=== PATIENT | female | born 2005 | race Caucasian/White ===

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

== ENCOUNTER 2024-04-16 19:21 | Observation (INO) | payer MEDICAID, SELFPAY ==
[2024-04-16 20:15] VITALS: BP 119/80; PULSE 91
[2024-04-16 20:19] VITALS: BMI 31.2
--- NOTE | 2024-04-16 20:19 | OBADM ---
This patient, Brit Lamas, admitted to the OB room Labor/Delivery/Recovery 106 for observation. Patient/family oriented to hospital policies and general routines including ID bracelet, bed and alarms, visiting hours, pain management, procedures, bathroom and other care routines, personal items, smoking policy, room service/diet, and visiting hours. Patient/Family are encouraged to report perceived risks to care and to ask questions if they do not understand what they are told or what they should do.
[2024-04-16 20:25] LABS: OBXCEM ROM Plus Negative (Negative)
--- NOTE | 2024-04-18 16:39 | PM.OBTRLD ---
OB - Triage/Final Diagnosis Visit Information Date of evaluation: 04/16/24 Reason for evaluation: threatened labor Comments/Additional reasons for admission: I have assessed the risk for this patient, Brit Lamas, and determined that she would benefit from observation care. Evaluation Laboratory results: Laboratory Tests 04/16/24 19:52 Membranes Rupture Rom plus negative
== END 2024-04-16 20:30 | disposition home or self-care (01) ==
PROVIDERS: Advanced Practice Midwife; Admitting Provider Obstetrics & Gynecology; Visit Provider Obstetrics & Gynecology
DX: O47.1 False labor at or after 37 completed weeks of gestation (principal); Z3A.38 38 weeks gestation of pregnancy
CPT/HCPCS: 84112; G0378; G0379

== ENCOUNTER 2024-04-20 08:20 | Observation (INO) | payer MEDICAID, SELFPAY ==
[2024-04-20 09:59] VITALS: BMI 31.2
--- NOTE | 2024-04-20 10:00 | OBADM ---
This patient, Brit Lamas, admitted to the OB room Labor/Delivery/Recovery 102 for observation. Patient/family oriented to hospital policies and general routines including ID bracelet, bed and alarms, visiting hours, pain management, procedures, bathroom and other care routines, personal items, smoking policy, room service/diet, and visiting hours. Patient/Family are encouraged to report perceived risks to care and to ask questions if they do not understand what they are told or what they should do.
--- NOTE | 2024-04-20 10:09 | PC.NURSE ---
Camilo Hansen CNM notified of patient's arrival on unit and SVE unchanged in an hour and patient says contractions are farther apart and less intense. Patient has appt tomorrow with provider. Orders to discharge
--- NOTE | 2024-04-21 07:56 | PM.OBTRLD ---
OB - Triage/Final Diagnosis Visit Information Date of evaluation: 04/20/24 Reason for evaluation: threatened labor Comments/Additional reasons for admission: I have assessed the risk for this patient, Brit Lamas, and determined that she would benefit from observation care. Evaluation Vital signs: Vital Signs - 24 hr 04/20/24 09:59 Oxygen Delivery Room Air
== END 2024-04-20 10:10 | disposition home or self-care (01) ==
PROVIDERS: Admitting Provider Obstetrics & Gynecology; Referring Provider Advanced Practice Midwife; Visit Provider Obstetrics & Gynecology
DX: O47.1 False labor at or after 37 completed weeks of gestation (principal); Z3A.39 39 weeks gestation of pregnancy
CPT/HCPCS: G0378; G0379

== ENCOUNTER 2024-04-27 14:35 | Outpatient (RCR) | payer MEDICAID, SELFPAY ==
[2024-04-27 15:10] VITALS: BP 122/72; PULSE 110
== END 2024-07-26 23:59 | disposition home or self-care (01) ==
LOC: ANHOBOP 14:35
PROVIDERS: Visit Provider Advanced Practice Midwife
DX: O36.8130 Decreased fetal movements, third trimester, not applicable or unspecified (principal); Z3A.40 40 weeks gestation of pregnancy
CPT/HCPCS: 59025

== ENCOUNTER 2024-04-30 20:52 | Inpatient (IN) | payer MEDICAID, SELFPAY ==
[2024-04-30 21:07] VITALS: BP 121/76; PULSE 84
[2024-04-30 21:29] VITALS: BP 120/79; PULSE 98
[2024-04-30 21:59] VITALS: BP 120/80; PULSE 91
[2024-04-30 22:30] VITALS: BP 126/81; PULSE 85
[2024-04-30 23:00] VITALS: BP 128/84; PULSE 80
[2024-05-01] VITALS (126 sets, daily range): BP systolic 66–135; BP diastolic 44–96; PULSE 55–125; RESP 16–20; TEMP 36.1–36.6; O2SAT 98–100; BMI 32.2
[2024-05-01 00:39] LABS: Basophils Percent Auto 0.2 % (0.2-1.2); Eosinophils Percent Auto 0.2 % (0-4.4); Hematocrit 39.4 % (37.0-47.0); Hemoglobin 13.2 g/dL (12.0-15.0); Immature Granulocyte Absolute 0.07 K/mm3 (0.00-0.031); Immature Granulocyte Percent A 0.7 % (0-0.5); Lymphocytes Absolute Auto 1.64 K/mm3 (0.9-3.2); Lymphocytes Percent Auto 16.5 % (18.3-44.2); Mean Corpuscular HGB Conc 33.5 g/dl (32-36); Mean Corpuscular Hemoglobin 26.8 pg (26-34); Mean Corpuscular Volume 80.1 fl (80-100); Mean Platelet Volume 8.2 fl (7.4-10.4); Monocytes Absolute Auto 0.4 K/mm3 (0.1-0.6); Monocytes Percent Auto 4.3 % (2.6-8.5); Neutrophils Absolute Auto 7.8 K/mm3 (1.3-6.7); Neutrophils Percent Auto 78.1 % (45.5-73.1); Platelet Count Result 244 k/mm3 (150-375); Red Blood Count 4.92 M/mm3 (4.2-5.4); Red Cell Distribution Width 21.2 % (11.5-14.5); White Blood Count 9.9 K/mm3 (4.5-10.0)
[2024-05-01] MEDS: LACTATED RINGERS 1,000 ML 125 ML IV CONT ×2 (00:45→01:08)
[2024-05-01 01:30] LABS: HIV 1/2 Ab P24 Ag Result Negative (Negative)
--- NOTE | 2024-05-01 01:43 | WPDANESEPP ---
Anes - Eval Pre Procedure Procedure: labor epidural Date/Time: 05/01/24 01:43 Surgeon: samara Preop Diagnosis: pain during labor Pre Op Diagnosis: Abdominal pain Patient Data Age: 18 Gender: F Height: Weight: Last Vital Signs Temp 36.1 C L 05/01/24 01:13 Pulse 83 05/01/24 01:41 BP 115/74 05/01/24 01:41 Pulse Ox 98 05/01/24 01:41 Allergies Allergy/AdvReac Type Severity Reaction Status Date / Time No Known Allergies Allergy Verified 03/27/24 12:08 Home Medications Medication Instructions Recorded Confirmed Type innjloah-pwm-Uf-FA 1 mg 1 tablet PO DAILY 03/08/24 03/27/24 History tablet Laboratory Tests 05/01/24 00:28 WBC 9.9 K/mm3 (4.5-10.0) RBC 4.92 M/mm3 (4.2-5.4) Hgb 13.2 g/dL (12.0-15.0) Hct 39.4 % (37.0-47.0) MCV 80.1 fl (80-100) MCH 26.8 pg (26-34) MCHC 33.5 g/dl (32-36) RDW 21.2 H % (11.5-14.5) Plt Count 244 k/mm3 (150-375) MPV 8.2 fl (7.4-10.4) Immature Gran % (Auto) 0.7 H % (0-0.5) Neut % (Auto) 78.1 H % (45.5-73.1) Lymph % (Auto) 16.5 L % (18.3-44.2) [place] % (Auto) 4.3 % (2.6-8.5) Eos % (Auto) 0.2 % (0-4.4) Baso % (Auto) 0.2 % (0.2-1.2) Lymph # (Auto) 1.64 K/mm3 (0.9-3.2) [place] # (Auto) 0.4 K/mm3 (0.1-0.6) Eos # (Auto) 0.0 K/mm3 (0-0.3) Baso # (Auto) 0.0 K/mm3 (0.0-0.1) Abs Immat Gran (auto) 0.07 H K/mm3 (0.00-0.031) Absolute Neuts (auto) 7.8 H K/mm3 (1.3-6.7) Absolute Nucleated RBC 0.000 K/mm3 (0.0-0.012) Nucleated RBC % 0.0 % (0.0-0.2) RPR Pending HIV 1&2 Ab/P24 Ag 4thGn Negative (Negative) Patient hx anesthesia problems: none Family hx anesthesia problems: none Results Review: All pre-operative results and documents have been reviewed as part of the pre-operative evaluation. [facility] Past Medical History Medical History (Updated 03/01/24 @ 11:58 by Warner Donahue PharmD) Anxiety Family History Family History Grandparent Breast cancer Diabetes mellitus Thyroid disorder Mother Diabetes mellitus Depression with anxiety Sibling Depression with anxiety Social History Social History (Updated 07/29/23 @ 09:10 by Cinthya Pichardo CMA) Smoking status: Never smoker Tobacco type: e-cigarettes/vaping Alcohol intake: never Substance use: never Substance use type: does not use Lack of Transportation: No Lack of Food: Sometimes True Current Housing: I Have Housing Concerned About Future Housing: No Difficulty Paying Gas/Electric Bills: No Difficulty Paying for Meds: No Currently Unemployed: No Difficulty w/ Childcare or Family Care: No Spiritual care concerns: No Exam Day of Procedure 05/01/24 01:43
--- NOTE | 2024-05-01 02:02 | LDADM ---
This patient, Brit Lamas, was admitted to Labor/Delivery/Recovery 105 on 04/30/24 at 20:52. Plans for labor, pain management and were discussed with patient. Patient/family oriented to hospital policies and general routines including ID bracelet, bed and alarms, visiting hours, pain management, procedures, bathroom and other care routines, personal items, smoking policy, room service/diet and guest tray routines, security routines, and visiting hours. Patient/Family are encouraged to report perceived risks to care and to ask questions if they do not understand what they are told or what they should do. See OBIX for further documentation.
[2024-05-01 03:37] LABS: Rapid Plasma Reagin Non-Reactive (NonReactive)
--- NOTE | 2024-05-01 06:19 | PM.OBPRVD ---
OB - Vaginal Delivery Note Procedure Delivery date: 05/01/24 Delivery augmentation: Rupture of Membranes and Pitocin Delivery monitor: External FHT and External Uterine Route of delivery: Episiotomy description: None Laceration Description: Labial (right) Delivery repair: vicryl Specimen: No Quantitative Blood Loss (ml): 125 Anesthesia type: Epidural Disposition: Floor Complications: No immediate complications Baby Date of : 05/01/24 Time of : 06:02 Gestational Age by Date: 40 Infant gender: Female presentation: vertex position: Left Occiput Anterior Placenta delivery description: Spontaneous Cord Vessel Description: 3 Vessels, Clamped/Cut and Delayed Cord Clamping score one minute: 8 score five minutes: 9
[2024-05-01] MEDS: OXYTOCIN 30 UNITS/NS 500 ML 30 UNITS/500 ML BAG 125 UNITS IV CONT (06:29)
[2024-05-01] MEDS: COSYNTROPIN 0.25 MG/ML VIAL 1 MG IV PUSH (08:16)
[2024-05-01] MEDS: WITCH HAZEL 40 PADS 1 PAD TOPICAL (08:48)
[2024-05-01] MEDS: BENZOCAINE 20% AER SPR (*SP) 56 GM CAN 1 SPRAY TOPICAL (08:48)
[2024-05-01] MEDS: ONDANSETRON INJ 4 MG/2 ML VIAL IV PUSH (09:30)
--- NOTE | 2024-05-01 11:00 | PC.NURSE ---
Addendum entered by Lawanda Brown RN 05/01/24 15:48: A Good Latch Every Time and Positions handouts given. Mother is not signed up for [facility] so pamphlet and referral form were given. Mother knows that we can send her information over to [facility] to help get her set up with the [facility] office prior to discharge. Original Note: Introductions were made, then consulted with patient to assess needs related to . Discussed with mother her?plans to feed?her infant and the?experience so far. Resources provided for inpatient and outpatient services with the feeding sheet, mom/baby guide and name/number written on the communication board. Mother just fed baby for 13 minutes independently. Encouraged mom to call out for a latch check. Mother voiced understanding of information and will call if there is a request for assistance. Reported to the Primary RN.
--- NOTE | 2024-05-01 11:06 | OBPPTRN ---
Addendum entered by Lawanda Brown RN 05/01/24 15:45: A Good Latch Every Time and Positions handouts given. Mother is not signed up for [facility] so pamphlet and referral form were given. Mother knows that we can send her information over to [facility] to help get her set up with the [facility] office prior to discharge. Original Note: Patient transferred to post room #[id number] via (wheelchair). Support person present. Oriented to unit, room, information board, rooming in, admission packet and security measures. Patient verbalizes understanding.
[2024-05-01] MEDS: diazePAM INJ (*CRX) 10 MG/2 ML SYRINGE 2.5 MG IM (11:42)
[2024-05-01] MEDS: MULTIVIT/MIN/PREN/FOL AC/IRON TABLET 1 TAB PO (11:43)
[2024-05-01] MEDS: ACETAMINOPHEN/BUTALBITAL/CAFFEINE 325-50-40 MG TABLET (FIORICET) 1 TAB PO ×2 (13:11→19:45)
--- NOTE | 2024-05-01 15:02 | WPDANLDPN2 ---
Anes-Prog Note L&D Date/Time: 05/01/24 15:02 Comfortable throughout: labor and delivery Neuraxial method: epidural Epidural/Spinal procedure site: tender Neuro status: Neuro function grossly intact. Cardiovascular status: normal Respiratory status: normal Airway patency: baseline Mental status: baseline Post-Op hydration status: normal Vital Signs: Last Vital Signs Temp 36.6 C 05/01/24 09:45 Pulse 86 05/01/24 09:45 Resp 16 05/01/24 09:45 BP 120/64 05/01/24 09:45 Pulse Ox 99 05/01/24 09:45 O2 Del Method Room Air 05/01/24 12:00 Pain score (VAS): 3/10 I/O: Intake & Output 04/30/24 05/01/24 05/01/24 23:59 07:59 15:59 Intake Total 1000 500 Output Total 125 Balance 875 500 Post-procedural complaints: other (PDPH) Patient feedback: Patient satisfied with anesthetic care. patient reports 3/10 headache on right frontal area of head. no neck stiffness. slightly worse when standing. talked about conservative treatments for PDPH. valium fioricet ordered. patient instructed to drink at least 2 liters of water per day. instructed to leave epidural catheter in place until at least 10 tonight. will discuss EBP if conservative treatments fail.
[2024-05-01] MEDS: IBUPROFEN 600 MG TABLET PO ×2 (15:19→21:30)
[2024-05-01] MEDS: ACETAMINOPHEN 325 MG TABLET 650 MG PO ×2 (15:20→21:30)
--- NOTE | 2024-05-01 16:00 | PC.NURSE ---
Mother called out because she couldn't get infant to wake to feed. Baby was swaddled and snuggling next to mom with the pacifier in her mouth. Encouraged understanding the benefits of skin to skin, responding to feeding cues, and waking baby by unwrapping and undressing her. Reviewed positioning and alignment, supporting breast, off-centered (asymmetrical latch) and leading with the chin with big, open, wide gape. Infant latched optimally to the [left] breast in [semi reclined side lying] position, due to mother's headache. The infant was [able] to maintain latch without discomfort to mother. Mother voiced understanding of the education shared, to call for assistance if the does not latch or if there is discomfort with . Reported to the Primary RN.
--- NOTE | 2024-05-01 22:03 | PC.NURSE ---
Epidural catheter removed by RN with blue tip intact, bandage applied to site.
[2024-05-02] MEDS: diazePAM INJ (*CRX) 10 MG/2 ML SYRINGE 2.5 MG IM (01:41)
[2024-05-02 04:31] LABS: Hematocrit 31.2 % (37.0-47.0); Hemoglobin 9.9 g/dL (12.0-15.0)
[2024-05-02] MEDS: oxyCODONE/ACETAMINOPHEN (*CRX) 5-325 MG TABLET 1 TABLET PO (05:04)
[2024-05-02 08:15] VITALS: BP 106/58; PULSE 83; RESP 16; TEMP 36.4; O2SAT 99
[2024-05-02] MEDS: TETANUS,DIPHTHERIA,AC PERTUSSIS ADULT (0.5 ML) BOOSTRIX IM (09:40)
[2024-05-02] MEDS: POLYSACCHARIDE IRON COMPLEX 150 MG CAPSULE PO ×2 (09:40→16:22)
[2024-05-02] MEDS: MULTIVIT/MIN/PREN/FOL AC/IRON TABLET 1 TAB PO (09:40)
[2024-05-02] MEDS: DOCUSATE SODIUM 100 MG CAPSULE PO ×2 (09:40→16:23)
--- NOTE | 2024-05-02 09:50 | PC.NURSE ---
Introductions were made, then consulted with patient to assess needs related to . Discussed with mother her?plans to feed?her and the?experience so far. Mother is mostly bottle feeding per her preference. Resources provided for inpatient and outpatient services with the feeding sheet, mom/baby guide and name/number written on the communication board. Mother voiced understanding of information and will call if there is a request for assistance. Reported to the Primary RN.
--- NOTE | 2024-05-02 10:09 | WPDANLDPN2 ---
Anes-Prog Note L&D Date/Time: 05/02/24 10:09 Comfortable throughout: labor and delivery Neuraxial method: epidural Epidural/Spinal procedure site: tender Neuro status: Neuro function grossly intact. Cardiovascular status: normal Respiratory status: normal Airway patency: baseline Mental status: baseline Post-Op hydration status: normal Vital Signs: Last Vital Signs Temp 97.5 F L 05/02/24 08:15 Pulse 83 05/02/24 08:15 Resp 16 05/02/24 08:15 BP 106/58 L 05/02/24 08:15 Pulse Ox 99 05/02/24 08:15 O2 Del Method Room Air 05/01/24 19:39 Pain score (VAS): 0/10 Post-procedural complaints: other (PDPH) Patient feedback: Patient satisfied with anesthetic care.
[2024-05-02] MEDS: ACETAMINOPHEN 325 MG TABLET 650 MG PO ×2 (12:31→18:33)
[2024-05-02] MEDS: IBUPROFEN 600 MG TABLET PO ×2 (12:31→18:33)
--- NOTE | 2024-05-02 12:33 | P.PNOB_ITS ---
OB - PN: Subj Subjective Date/time seen: 05/02/24 12:33 Patient comments: no complaints, pain well controlled, incisional pain, tolerating diet and flatus present OB - PN: Obj Data Labs 05/02/24 03:17 Labs: Laboratory Results - last 24 hr 05/02/24 03:17 Hgb 9.9 L D Hct 31.2 L OB - PN A/P Plan day: 1 Plan: routine care Comments: No problems, routine care Time Spent With Patient Time: Total time spent is greater than 50% in coordination of care (as documented) at patient's floor/unit and/or counseling patient: Exam Const: General: comfortable, no acute distress and alert Resp: Effort & Inspection: normal respiratory effort Auscultation: no crackles, no rales and no rhonchi Cardio: Rate: regular rate Heart sounds: no click, no murmurs and no rubs GI: Inspection: non-distended GI Palp: No Tenderness to palpation present ( GI) Auscultation: normal bowel sounds Other: Incision - CDI Extrem: General: normal to inspection, no pedal edema and no calf tenderness
--- NOTE | 2024-05-02 15:27 | PCCCNOTE ---
Met with pt. and FOB at bedside. This is their first child. Pt. lives at home with her mother. Reports she has supportive family. Has everything she needs at home including a car seat, crib, clothing, bottles etc. She was provided resources if she is interested in establishing with [facility] services at discharge. Spoke with pt. and she does not report any current mental health concerns. Does not see anyone for mental health services at this time. 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 Offered to give information for her to establish with a PMD or mental health provider and she declines at this time. Feels safe to return home. Denies any other case management needs.
[2024-05-02] MEDS: ACETAMINOPHEN/BUTALBITAL/CAFFEINE 325-50-40 MG TABLET (FIORICET) 1 TAB PO (16:22)
[2024-05-02] MEDS: CYCLOBENZAPRINE HCL 5 MG TABLET PO (17:32)
[2024-05-02 18:32] VITALS: BP 115/69; PULSE 87; RESP 12; TEMP 37.2; O2SAT 99
--- NOTE | 2024-05-03 07:03 | PM.OBPNVD ---
OB - PN: Subj Subjective Date/time seen: 05/03/24 07:03 Interval history: pp day 2 bottle feeding flexeril helping with back spasms OB - PN: Obj Data Labs 05/02/24 03:17 OB - PN A/P Plan day: 2 Plan: routine care and discharge home Time Spent With Patient Time: Total time spent is greater than 50% in coordination of care (as documented) at patient's floor/unit and/or counseling patient: Review of Systems Review of Systems: All systems reviewed & are unremarkable except as noted in HPI and below Exam Const: General: cooperative and healthy appearing Resp: Effort & Inspection: normal respiratory effort Cardio: Rate: regular rate Rhythm: regular rhythm Skin: General skin exam: normal color
--- NOTE | 2024-05-03 07:06 | PM.OBDSVD ---
DS: Admitting Diagnosis Discharge Date 05/03/24 Admitting Diagnosis labor DS: Discharge Diagnosis Discharge Diagnosis (1) Vaginal delivery: Code(s): O80 - Encounter for full-term uncomplicated delivery Status: Acute OB - DS: Summary OB Procedures : None OB Procedures Intrapartum: Spontaneous Vag Delivery OB Procedures: : None Peripartum Data Laceration Description: Labial (right) Episiotomy description: None Time Spent with Patient Time attestation: Total time spent providing and/or coordinating discharge services: Discharge Plan Discharge Attending physician on discharge: Rafa Fields Discharging Clinician: Abeba Hansen Patient Disposition: Home, Self-Care Activity: pelvic rest Diet: regular Patient Instructions: Antibiotic Form Stand Alone Forms: General Discharge Information Follow-up/Referrals: Abeba Hansen CNM [Certified Nurse Speech Language Pathology Assistant] - 4 Weeks Discharge Medications: New ibuprofen 600 mg Tablet 600 mg PO Q6H PRN (Reason: Cramping) Qty: 30 0RF cyclobenzaprine 5 mg tablet 5 mg PO TID PRN (Reason: muscle spasm) Qty: 30 0RF Continued qaxfkpgo-cbr-Xk-FA 1 mg Tablet 1 tablet PO DAILY Date of admission: 04/30/24 20:52 Primary Care Provider: UNKNOWN,DOCTOR Admitting Provider: Rafa Fields Attending physician on admission: Rafa Fields Condition: Stable
[2024-05-03 08:00] VITALS: PULSE 89; RESP 16; O2SAT 100
[2024-05-03 08:10] VITALS: BP 115/69; PULSE 89; RESP 16; TEMP 36.3; O2SAT 100
[2024-05-03] MEDS: CYCLOBENZAPRINE HCL 5 MG TABLET PO (08:52)
[2024-05-03] MEDS: POLYSACCHARIDE IRON COMPLEX 150 MG CAPSULE PO (08:52)
[2024-05-03] MEDS: DOCUSATE SODIUM 100 MG CAPSULE PO (08:52)
[2024-05-03] MEDS: MULTIVIT/MIN/PREN/FOL AC/IRON TABLET 1 TAB PO (08:52)
--- NOTE | 2024-05-03 09:45 | PC.NURSE ---
Introductions were made, then consulted with patient to assess needs related to . Discussed with mother her?plans to feed?her and the?experience so far. Per mother she has her own breast pump at home and plans to pump and bottle feed. RN offered to assist with flange size and go over breast pump use, mother declined any help at this time. Resources provided for inpatient and outpatient services with the feeding sheet, mom/baby guide and name written on the communication board. Mother voiced understanding of information and will call if there is a request for assistance. Reported to the Primary RN.
--- NOTE | 2024-05-03 11:12 | PC.NURSE ---
Patient viewed the discharge video Mother & Baby Care, The First Two Weeks . Patient was given the opportunity and encouraged to ask questions. Patient verbalized understanding of information shared and has been given the mother/baby guide for home reference.
[2024-05-04 08:30] VITALS: BP 126/74; PULSE 91; RESP 18; TEMP 36.7; O2SAT 100
== END 2024-05-03 12:50 | disposition home or self-care (01) | DRG 560 ==
LOC: ANHLDR 05-01 06:47 → ANHOB2 05-01 09:47
PROVIDERS: Advanced Practice Midwife; Admitting Provider Obstetrics & Gynecology; Visit Provider Obstetrics & Gynecology
DX: O70.0 First degree perineal laceration during delivery (principal); Z37.0 Single live birth; Z3A.40 40 weeks gestation of pregnancy
CPT/HCPCS: 36415; 85014; 85018; 85025; 86592; 86703; 86850; 86900; 86901; 90715; A9270; G0432; J0834; J2405; J2590; J2795; J3360; J7120

== ENCOUNTER 2024-05-05 09:43 | Outpatient (CLI) | payer MEDICAID, SELFPAY ==
[2024-05-05 10:00] VITALS: BP 117/81
[2024-05-05] MEDS: LACTATED RINGERS 1,000 ML 999 ML IV CONT (10:55)
[2024-05-05 11:10] LABS: Mean Platelet Volume 8.1 fl (7.4-10.4); Platelet Count Result 237 k/mm3 (150-375)
[2024-05-05 12:48] VITALS: BP 120/76; PULSE 81; RESP 16; TEMP 36.4
[2024-05-05 13:00] VITALS: BP 114/76; PULSE 70
--- NOTE | 2024-05-05 13:09 | P.PNAN_ITS ---
Anes - Eval Pre Procedure Procedure: Epidural Blood Patch Date/Time: 05/05/24 13:09 Preop Diagnosis: PDPH Pre Op Diagnosis: Headache Patient Data Age: 18 Gender: F Height: Weight: Last Vital Signs BP 117/81 05/05/24 10:00 Allergies Allergy/AdvReac Type Severity Reaction Status Date / Time No Known Allergies Allergy Verified 03/27/24 12:08 Home Medications Medication Instructions Recorded Confirmed Type ujzzefmo-lls-Ns-FA 1 mg 1 tablet PO DAILY 03/08/24 03/27/24 History tablet cyclobenzaprine 5 mg tablet 5 mg PO TID PRN muscle spasm #30 05/03/24 Rx tabs ibuprofen 600 mg tablet 600 mg PO Q6H PRN Cramping #30 tabs 05/03/24 Rx Laboratory Tests 05/05/24 10:36 Plt Count 237 k/mm3 (150-375) MPV 8.1 fl (7.4-10.4) Patient hx anesthesia problems: none Family hx anesthesia problems: none Results Review: All pre-operative results and documents have been reviewed as part of the pre- operative evaluation. [facility] Past Medical History Medical History Anxiety Family History Family History Grandparent Breast cancer Diabetes mellitus Thyroid disorder Mother Diabetes mellitus Depression with anxiety Sibling Depression with anxiety Social History Social History Smoking status: Former smoker Tobacco type: e-cigarettes/vaping Second hand tobacco smoke exposure: No Smoking end date: 04/09/23 Alcohol intake: never Substance use: never Substance use type: does not use Do You Feel Safe in your Home?: Yes Lack of Transportation: No Lack of Food: Never True Current Housing: I Have Housing Concerned About Future Housing: No Difficulty Paying Gas/Electric Bills: No Difficulty Paying for Meds: No Currently Unemployed: No Education: High School Diploma/GED Difficulty w/ Childcare or Family Care: No Spiritual care concerns: No Exam Day of Procedure 05/05/24 13:09 Patient weight: overweight Heart: regular rate and rhythm Lungs: clear to auscultation Airway: Mallampati scale Neurological: alert and oriented
--- NOTE | 2024-05-05 13:11 | P.PCNANE_ITS ---
Anes - Epidural Blood Patch PN Date/Time: 05/05/24 13:11 Consent: I have discussed with the patient/family/POA, the rationale of a lumbar epidural autologous blood patch for the treatment of post-dural puncture headache (spinal headache), including associated potential risks, benefits, complications and side effects. I have also discussed more conservative treatment options such as intravenous hydration, caffeine and non-prescription analgesics. The patient/family/POA, understand(s) and wish(es) to proceed with epidural autologous blood patch as treatment for the patient's post-dural puncture headache. Time-Out: A pre-procedural Time-Out was completed immediately before starting the procedure and confirmed: Patient Identification, Site, Procedure, Patient Position and the Availability of Requisite Equipment. Clinical Indications: Patient complained of severe headache this morning, also states nausea and vomiting last night. Patient given 500mL bolus prior to procedure. Patient positioned sitting. Time out preformed. Site prepped and draped, sterile technique maintained. Epidural needle placed at L4-5, loss of resistance at 6cm, 20mL of blood drawn via sterile technique by Stephania ARORA and administered through epidural syringe by STADIUM ATTENDANT. Patient states no complaints during or after procedure. Instructed patient to lay supine for 2 hours and hydration, rest, and caffeine encouraged. Instructed patient to call if any symptoms resume after discharge home. Epidural Insertion Note Patient position: sitting Skin prep: chlorhexidine Needle: 18 gauge Tuohy-Schliff Technique: loss of resistance Skin anesthesia: lidocaine 1% Observations: tolerated well
--- NOTE | 2024-05-05 15:53 | PC.NURSE ---
1300--Blood patch done per Guanako Carvajal CRNA, Dr. Recinos at as well, education re: self care after discharge home and what to expect done per anesthesia team.
--- NOTE | 2024-05-05 15:56 | PC.NURSE ---
1515--Pt. states her h/a is gone and she wants to go home at this time. IV DC'd at this time and pt. DC home with instructions.
== END 2024-05-05 15:26 | disposition home or self-care (01) ==
LOC: ANHOBOP 09:53 → ANHOBPP 09:54
PROVIDERS: Anesthesiology; Visit Provider Advanced Practice Midwife
DX: R51.9 Headache, unspecified (principal)
CPT/HCPCS: 36415; 62273; 85049; 99199; J7120

== ENCOUNTER 2025-05-16 00:12 | Observation (INO) | payer OTHER, SELFPAY ==
[2025-05-16] VITALS (11 sets, daily range): BP systolic 93–109; BP diastolic 52–85; PULSE 57–81; RESP 14–20; TEMP 36.2–36.8; O2SAT 95–100; BMI 33.1
--- NOTE | ~2025-05-16 | CT_ITS ---
EXAMINATION: CT abdomen pelvis w con DATE: 05/16/2025 02:23 INDICATION: Right abdominal pain. TECHNIQUE: Computed tomography (CT) of the abdomen and pelvis was performed with 100 mL Omnipaque 350 intravenous contrast. Automated exposure control and iterative reconstruction technique were employed. The dose-length product was 807.87 mGy-cm. COMPARISON: None. FINDINGS: The visualized portions of the lung bases demonstrate calcified pulmonary nodules, consistent with old granulomatous disease. No pleural effusion. The heart size is normal. No pericardial effusion. The liver is normal. There is a gallstone in the gallbladder, which is normal in size. The spleen, pancreas, adrenal glands, and kidneys are normal. There are no dilated loops of bowel. There are changes of appendectomy. There are no pathologically enlarged lymph nodes. There is no free intraperitoneal fluid. There is mild thoracic spondylosis. IMPRESSION: 1. No etiology for the patient's symptoms. Reviewed, dictated and finalized at location E.
--- NOTE | ~2025-05-16 | US_ITS ---
EXAMINATION: US abdomen limited DATE: 05/16/2025 15:52 INDICATION: Gallbladder sludge TECHNIQUE: Multiple grayscale and Doppler ultrasound images of the abdomen were obtained. COMPARISON: MRI dated 05/16/2025 FINDINGS: The pancreatic head and body are normal in appearance. The pancreatic tail is not visualized. Liver has normal echogenicity and contour, with a smooth surface. No liver lesion identified. No intrahepatic biliary duct dilation suspected. Portal venous flow was seen in the hepatopetal, normal direction and has normal Doppler waveform. Visualized proximal to mid inferior vena cava is normal. Visualized portion of the right kidney demonstrates normal contour and axis tube with no hydronephrosis. Multiple echogenic and shadowing gallstones layering dependently in the normal-appearing nondilated gallbladder. Common bile duct measures 3 mm maximal diameter which is normal. Sonographic Armas sign was reported as negative by the bottom stainer. IMPRESSION: 1. Cholelithiasis without evident acute cholecystitis or biliary ductal dilation. Reviewed, dictated and finalized at location A. IMPRESSION: 1. Cholelithiasis without evident acute cholecystitis or biliary ductal dilatio n.
--- NOTE | ~2025-05-16 | MR_ITS ---
EXAMINATION: MR MRCP wo/w con/w 3D wo ind DATE: 05/16/2025 12:45 INDICATION: Right upper quadrant abdominal pain. Elevated transaminases. TECHNIQUE: Magnetic resonance imaging (MRI) of the abdomen was performed without and with 17 mL Multihance intravenous contrast. Sequences included coronal T2- weighted SS-FSE, coronal T2-weighted FS SS-FSE, coronal T2-weighted FS FIESTA, axial T2-weighted FS FIESTA, axial T2-weighted FIESTA, sagittal T2-weighted SS- FSE, axial T1-weighted dual-echo FSPGR, axial T2-weighted SS-FSE, axial T1- weighted LAVA, axial T2-weighted STIR FSE. Thick-slab T2-weighted FRFSE-XL images were obtained for magnetic resonance cholangiopancreatography (MRCP). Rotating maximum intensity projection 3-D reconstructions of the volumetric data were created by the technologist. Postcontrast sequences included a time course of axial T1-weighted LAVA. COMPARISON: CT dated 05/16/2025 FINDINGS: ABDOMEN MRI: Heart size is normal. No pericardial or pleural effusion. Multiple small gallstones the dependent aspect of the normal-appearing gallbladder. Liver, spleen, pancreas, bilateral adrenal glands and kidneys are normal. No bowel obstruction. Uterus, bilateral adnexa and visualized portions of the bladder are unremarkable. No pathologically enlarged abdominal or upper pelvic lymphadenopathy. Bone marrow signal is normal throughout. ABDOMEN MRCP: No intra or extrahepatic biliary ductal dilation. The common hepatic duct measures up to 4 mm and the common bile duct measures up to 2 mm, both which are normal. No evident strictures or intraluminal filling defects to suggest choledocholithiasis. IMPRESSION: 1. Cholelithiasis within the normal gallbladder with no choledocholithiasis and no intra or extrahepatic biliary ductal dilation. Reviewed, dictated and finalized at location A.
--- OUTSIDE RECORDS SUMMARY | 2025-05-16 00:14 | XMS_ITS | Clinical Summary ---
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 This disclosure is being madepursuant to the Care Everywhere program and may not contain all information available regarding this patient. Last updated [address].[facility] Light[employer] Allergies No known active allergies Medications * Be aware that medications may not be up to date on this document. Alwaysverify current medications with the patient. acetaminophen (TYLENOL) 160 MG/5ML suspension Take 15.65 mL by mouth every 4 hours as needed 11/27/2017 Active ibuprofen (ADVIL; MOTRIN) 100 MG/5ML suspension Take 20 mL by mouth every 6 hours as needed 11/27/2017 Active docusate sodium (COLACE) 50 MG/5ML solution Take 5 mL by mouth 2 times daily 30 mL 11/27/2017 Active Active Problems Problem Noted Date Diagnosed Date Abdominal pain, right lower quadrant 11/25/2017 Family History Medical History Relation Name Comments Migraine Maternal Grandmother Migraine Mother Relation Name Status Comments Brother Alive Father Alive Maternal Grandfather Alive Maternal Grandmother Alive Mother Alive Paternal Grandfather Alive Paternal Grandmother Alive Social History Tobacco Use Types Packs/Day Years Used Date Smoking Tobacco: Never Smokeless Tobacco: Never Comments No Sex and Gender Information Value Date Recorded Sex Assigned at Not on file Legal Sex Female 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 [employer] Gender Identity Not on file Sexual Orientation Not on file Last Filed Vital Signs Vital Sign Reading Time Taken Comments Blood Pressure 110/60 04/08/2019 12:30 PM CDT Pulse 80 04/08/2019 12:30 PM CDT Temperature 36.8 C (98.3 F) 04/08/2019 12:30 PM CDT Respiratory Rate 20 04/08/2019 12:30 PM CDT Oxygen Saturation 96% 11/27/2017 3:25 AM CDT Inhaled Oxygen Concentration - - Weight 69.6 kg (153 lb 7 oz) 04/08/2019 10:11 AM CDT Height 159 cm (5' 2.6) 04/08/2019 10:11 AM CDT Body Mass Index 27.53 04/08/2019 10:11 AM CDT Plan of Treatment Health Maintenance Due Date Last Done Comments HIV SCREENING 2019 HPV VACCINE (1 - 3-dose series) 2019 CHLAMYDIA/GONORRHEA SCREENING 2020 MENINGOCOCCAL (Group B) VACCINE SHARED DECISION-MAKING (1 of 2 - Standard) 2020 HEPATITIS C SCREENING 06/13/2022 DTAP/TDAP/TD VACCINES (1 - Tdap) 2023 HEPATITIS B VACCINE (1 of 3 - 19+ 3-dose series) 2023 DEPRESSION SCREENING 08/09/2024 COVID-19 VACCINE (3 - 2024- season) 2025 12/04/2020, 11/12/2020 INFLUENZA VACCINE (#1) 2025 1, 07/10/2009, 06/07/2009, Additional history exists ZOSTER VACCINE (1 of 2) 2054 HIB VACCINE Aged Out No longer eligi ble based on patient's age to complete this topic MENINGOCOCCAL GROUPS A/C/Y/W VACCINE Aged Out No longer eligible based on patient's age to complete this topic PNEUMOCOCCAL VACCINE Aged Out No long er eligible based on patient's age to complete this topic [place] [facility] MEDICAID - OUT OF [place] [address] [place] [address] MEDICAID - OUT OF [facility] Advance Directives * Full Code (Latest Code Status on File) Date Activated Date Inactivated Comments 11/25/2017 3:00 PM 11/27/2017 11:43 AM
[2025-05-16] MEDS: ONDANSETRON INJ 4 MG/2 ML VIAL IV PUSH (01:37)
[2025-05-16] MEDS: SODIUM CHLORIDE 0.9% IV 1,000 ML 999 ML IV CONT (01:37)
[2025-05-16] MEDS: MORPHINE SULFATE (*CRX) 4 MG/ML INJ IV PUSH (01:37)
[2025-05-16 01:38] LABS: BEDSIDEPREGUCG Negative (Negative)
[2025-05-16 01:51] LABS: Hematocrit 41.6 % (37.0-47.0); Hemoglobin 13.7 g/dL (12.0-15.0); Immature Granulocyte Percent A 0.5 % (0-0.5); Lymphocytes Absolute Auto 0.99 K/mm3 (0.9-3.2); Mean Corpuscular HGB Conc 32.9 g/dl (32-36); Mean Corpuscular Hemoglobin 27.3 pg (26-34); Mean Corpuscular Volume 83.0 fl (80-100); Nucleated Red Blood Cells Absolute Auto 0.000 K/mm3 (0.0-0.012); Nucleated Red Blood Cells Perc 0.0 % (0.0-0.2); Platelet Count Result 275 k/mm3 (150-375); Red Blood Count 5.01 M/mm3 (4.2-5.4); White Blood Count 11.8 K/mm3 (4.5-10.0)
[2025-05-16 01:57] LABS: Alanine Aminotransferase 102 U/L (6-35); Albumin Level 4.7 g/dL (3.5-5.1); Alkaline Phosphatase 109 U/L (38-126); Anion Gap 10 mmol/L (4-12); Aspartate Amino Transferase 207 U/L (14-36); Bilirubin,Total 1.7 mg/dL (0.2-1.3); Blood Urea Nitrogen 15 mg/dL (7-17); Calcium 9.3 mg/dL (8.4-10.2); Carbon Dioxide 24 mmol/L (22-30); Chloride 104 mmol/L (98-107); Estimated CRCL calculation 133 ml/min; Estimated Glomerular Filt Rate > 60; Glucose 102 mg/dL (65-110); Lipase 86 U/L (23-300); Potassium 3.7 mmol/L (3.4-5.0); Sodium 138 mmol/L (137-145); Total Protein 8.3 g/dL (6.3-8.2)
--- NOTE | 2025-05-16 02:11 | ED_ITS ---
HPI - General Adult General Chief complaint: Abdominal Pain Stated complaint: RUQ abd pain x 4 hours Time Seen by Provider: 05/16/25 01:12 History of Present Illness HPI narrative: Patient 19-year-old female who presents emergency department chief complaint of right-sided abdominal pain patient reports that around 4 hours ago she started having pain in the right upper quadrant reports that radiates to her back and into the epigastric area patient states that she believes she may be having a problem with her gallbladder Related Data Home Medications ?Medication ?Instructions ?Recorded ?Confirmed ?Last Taken ?Type lgxjxqkc-[id number]-[id number]-FA 1 mg 1 tablet PO DAILY 03/27/24 1 Day Ago History tablet ~03/26/24 Allergies Allergy/AdvReac Type Severity Reaction Status Date / Time No Known Allergies Allergy Verified 05/16/25 00:13 Review of Systems 2 Review of Systems: A 10 system review of systems was completed on the patient and is negative except for what is stated in the HPI. Nursing and ancillary documentation was reviewed. PMFSH Past Medical History Medical History Anxiety Family History Family History Grandparent Breast cancer Diabetes mellitus Thyroid disorder Mother Diabetes mellitus Depression with anxiety Sibling Depression with anxiety Social History Social History Smoking status: Former smoker Tobacco type: e-cigarettes/vaping Second hand tobacco smoke exposure: No Smoking end date: 04/09/23 Alcohol intake: never Substance use: never Substance use type: does not use Do You Feel Safe in your Home?: Yes Lack of Transportation: No Lack of Food: Never True Current Housing: I Have Housing Concerned About Future Housing: No Difficulty Paying Gas/Electric Bills: No Difficulty Paying for Meds: No Currently Unemployed: No Education: High School Diploma/GED Difficulty w/ Childcare or Family Care: No Spiritual care concerns: No Exam 2 Narrative: GENERAL: Well-appearing, well-nourished, and in no acute distress. HEAD: Normocephalic, atraumatic. EYES: PERRLA and EOMI. ENT: Nares clear, no rhinorrhea or epistaxis. Mucous membranes moist. NECK: Supple. CHEST: Clear to auscultation. No respiratory distress. HEART: Regular rate and rhythm. No murmur heard. Normal peripheral pulses. ABDOMEN: Soft, tenderness to palpation the right upper quadrant, nondistended, normal active bowel sounds. EXTREMITIES: Normal range of motion. No edema. SKIN: Warm, dry, no rash. NEURO: No focal deficits. Alert and oriented x3. PSYCH: Normal mood and affect. Course Vital Signs Vital signs: Vital Signs Temperature 36.6 C 05/16/25 00:20 Pulse Rate 67 05/16/25 00:20 Respiratory Rate 19 05/16/25 00:20 Blood Pressure 109/85 05/16/25 00:20 Pulse Oximetry 98 05/16/25 00:20 Oxygen Delivery Room Air 05/16/25 00:20 Temperature 36.6 C 05/16/25 00:20 Pulse Rate 70 05/16/25 01:45 Respiratory Rate 19 05/16/25 01:45 Blood Pressure 109/85 05/16/25 00:20 Pulse Oximetry 99 05/16/25 01:45 Oxygen Delivery Room Air 05/16/25 00:20 Medical Decision Making MDM Narrative Medical decision making narrative: Differential diagnosis includes cholecystitis, choledocholithiasis, biliary obstruction, pancreatitis, UTI Laboratory studies were obtained on the patient showed a bilirubin 1.7 liver enzymes were slightly elevated as well CT scan of the abdomen pelvis showed evidence of gallstones without evidence of acute cholecystitis. Given the elevated transaminases and bilirubin of the case was discussed with the hospitalist the patient be admitted for an MRCP and GI evaluation Vital Signs Vital Signs: Vital Signs Temperature 36.6 C 05/16/25 00:20 Pulse Rate 67 05/16/25 00:20 Respiratory Rate 19 05/16/25 00:20 Blood Pressure 109/85 05/16/25 00:20 Pulse Oximetry 98 05/16/25 00:20 Oxygen Delivery Room Air 05/16/25 00:20 Temperature 36.6 C 05/16/25 00:20 Pulse Rate 70 05/16/25 01:45 Respiratory Rate 19 05/16/25 01:45 Blood Pressure 109/85 05/16/25 00:20 Pulse Oximetry 99 05/16/25 01:45 Oxygen Delivery Room Air 05/16/25 00:20 Lab Data 05/16/25 01:38 05/16/25 01:38 Labs: Lab Results 05/16/25 05/16/25 Range/Units 01:36 01:38 WBC 11.8 H (4.5-10.0) K/mm3 RBC 5.01 (4.2-5.4) M/mm3 Hgb 13.7 D (12.0-15.0) g/dL Hct 41.6 (37.0-47.0) % MCV 83.0 (80-100) fl MCH 27.3 (26-34) pg MCHC 32.9 (32-36) g/dl RDW 13.2 (11.5-14.5) % Plt Count 275 (150-375) k/mm3 MPV 8.2 (7.4-10.4) fl Immature Gran % (Auto) 0.5 (0-0.5) % Neut % (Auto) 86.0 H (45.5-73.1) % Lymph % (Auto) 8.4 L (18.3-44.2) % [place] % (Auto) 4.8 (2.6-8.5) % Eos % (Auto) 0.1 (0-4.4) % Baso % (Auto) 0.2 (0.2-1.2) % Lymph # (Auto) 0.99 (0.9-3.2) K/mm3 [place] # (Auto) 0.6 (0.1-0.6) K/mm3 Eos # (Auto) 0.0 (0-0.3) K/mm3 Baso # (Auto) 0.0 (0.0-0.1) K/mm3 Abs Immat Gran (auto) 0.06 H (0.00-0.031) K/mm3 Absolute Neuts (auto) 10.2 H (1.3-6.7) K/mm3 Absolute Nucleated RBC 0.000 (0.0-0.012) K/mm3 Nucleated RBC % 0.0 (0.0-0.2) % Sodium 138 (137-145) mmol/L Potassium 3.7 (3.4-5.0) mmol/L Chloride 104 (98-107) mmol/L Carbon Dioxide 24 (22-30) mmol/L Anion Gap 10 (4-12) mmol/L BUN 15 (7-17) mg/dL Creatinine 0.58 L (0.7-1.0) mg/dL Estim Creat Clear Calc 133 ml/min Estimated GFR > 60 (59 - ) Glucose 102 (65-110) mg/dL Calcium 9.3 (8.4-10.2) mg/dL Total Bilirubin 1.7 H (0.2-1.3) mg/dL AST 207 H (14-36) U/L ALT 102 H (6-35) U/L Alkaline Phosphatase 109 (38-126) U/L Total Protein 8.3 H (6.3-8.2) g/dL Albumin 4.7 (3.5-5.1) g/dL Lipase 86 (23-300) U/L Urine Color Dark yellow (Yellow) Urine Appearance Cloudy H (Clear) Urine pH 5.5 (5.0-9.0) Ur Specific [place] 1.041 H (1.001-1.035) Urine Protein 1+ H (Negative) mg/dL Urine Glucose (UA) Negative (Negative) mg/dL Urine Ketones 2+ H (Negative) mg/dL Ur Blood (Man) Negative (Negative) Urine Nitrate Negative (Negative) Urine Bilirubin 2+ H (Negative) Urine Urobilinogen 1.0 (<2.0) mg/dL Leukocyte Esterase Rfl Trace H (Negative) ELIZABETH/UL Urine RBC 3-5 H (0-2) /hpf Urine WBC 11-20 H (0-3) /hpf Ur Squamous Epith Cells Moderate (Few) /hpf Urine Bacteria 4+ H /hpf Urine Casts 3-5 POC Urine HCG, Qual Negative (Negative) Discharge Plan Discharge Clinical Impression: Cholelithiasis, Elevated liver enzymes, UTI (urinary tract infection) Patient Disposition: Still a Patient Condition: Stable Instructions: Antibiotic Form Patient Language: Tamazight Prescriptions: No Action ozolnsrm-vyo-Jz-FA 1 mg Tablet 1 tablet PO DAILY ibuprofen 600 mg Tablet 600 mg PO Q6H PRN (Reason: Cramping) Qty: 30 0RF cyclobenzaprine 5 mg tablet 5 mg PO TID PRN (Reason: muscle spasm) Qty: 30 0RF Follow-up/Referrals: PHYSICIAN,CLAMP CARRIER OPERATOR [Primary Care Provider, Internal Medicine] Time of Disposition: 03:00
[2025-05-16 02:12] LABS: Add Urine Microscopic? YES; Appearance Urine Cloudy (Clear); Glucose Urine UA Negative (Negative); Leukocyte Esterase Ur Trace LEU/UL (Negative); Nitrate Urine Negative (Negative); Specific Grav Ur 1.041 (1.001-1.035)
[2025-05-16] MEDS: cefTRIAXone 1 GM in SODIUM CHLORIDE 0.9% IV 50 ML 100 ML IVPB (03:29)
[2025-05-16] MEDS: SODIUM CHLORIDE 0.9% IV 1,000 ML 125 ML IV CONT ×2 (03:30→11:23)
--- NOTE | 2025-05-16 05:58 | P.HP_ITS ---
H&P: HPI History of Present Illness Date/Time: 05/16/25 05:58 Chief Complaint: Right upper quadrant pain Narrative: This is a pleasant 19-year-old female PMH nicotine vaping, class 1 obesity, who presents to [facility] on 05/16/2025 complaining of right upper quadrant pain with nausea vomiting for 1 day. She has had similar pain on a few occasions in the past few months, she last visited [place] and was discharged from the ER. She has not had any abdominal surgeries, her 1 was a vaginal delivery. She denies fever, chest pain, shortness of breath, bloody vomitus, diarrhea. Denies urinary frequency, dysuria, foul- smelling urine. WBC 76095, serum creatinine 0.58, total bilirubin 1.7, AST 207, ALT 102, lipase 86, urinalysis grossly abnormal with bacteria, WBC, leukocyte esterase, however contaminated. Patient received morphine 4 mg IV, ceftriaxone, 1 L normal saline bolus, Zofran 4 mg IV x1. She was resting comfortably thereafter. CT abdomen and pelvis with contrast demonstrates gallstones, official radiology interpretation is pending. Review of Systems Review of Systems: All systems reviewed & are unremarkable except as noted in HPI and below (Subjective) PMFSH Past Medical History Medical History Anxiety Family History Family History Grandparent Breast cancer Diabetes mellitus Thyroid disorder Mother Diabetes mellitus Depression with anxiety Sibling Depression with anxiety Social History Social History Smoking status: Never smoker Tobacco type: e-cigarettes/vaping Second hand tobacco smoke exposure: No Smoking end date: 04/09/23 Alcohol intake: never Substance use: never Substance use type: does not use Do You Feel Safe in your Home?: Yes Lack of Transportation: No Lack of Food: Never True Current Housing: I Have Housing Concerned About Future Housing: No Difficulty Paying Gas/Electric Bills: No Difficulty Paying for Meds: No Currently Unemployed: No Education: High School Diploma/GED Difficulty w/ Childcare or Family Care: No Spiritual care concerns: No Meds Home Medications and Allergies Home Medications ?Medication ?Instructions ?Recorded ?Confirmed ?Type ibuprofen 600 mg tablet 600 mg PO Q6H PRN Cramping # 30 tabs 05/03/24 05/16/25 Rx Allergies Allergy/AdvReac Type Severity Reaction Status Date / Time No Known Allergies Allergy Verified 05/16/25 00:13 Vital Signs Vital Signs - 24 hr 05/16/25 00:20 05/16/25 01:43 05/16/25 01:45 Temperature 97.8 F Pulse Rate 67 74 70 Respiratory Rate 19 14 19 Blood Pressure 109/85 Pulse Oximetry 98 99 99 Oxygen Delivery Room Air 05/16/25 03:01 05/16/25 03:02 05/16/25 03:15 Temperature Pulse Rate 64 69 72 Respiratory Rate 17 19 20 Blood Pressure 102/68 Pulse Oximetry 99 100 100 Oxygen Delivery 05/16/25 04:43 Temperature Pulse Rate 67 Respiratory Rate 15 Blood Pressure 101/69 Pulse Oximetry 99 Oxygen Delivery Exam Const: General: comfortable and no acute distress Other: A&O x3 Eyes: Pupils: Equal, round and reactive pupils present Neck: Neck: supple Resp: Effort & Inspection: normal respiratory effort Auscultation: clear to auscultation bilaterally Cardio: Rate: regular rate Rhythm: regular rhythm Heart sounds: no murmurs GI: GI Palp: Yes Soft to palpation and No Guarding due to palpation present (GI) Auscultation: normal bowel sounds Other: Right upper quadrant pain with positive Armas sign Neuro: Motor exam (neuro): 5/5 motor strength present throughout Extrem: General: no edema H&P: Results Labs Labs: Short CBC 05/16/25 Range/Units 01:38 WBC 11.8 H (4.5-10.0) K/mm3 Hgb 13.7 D (12.0-15.0) g/dL Hct 41.6 (37.0-47.0) % Plt Count 275 (150-375) k/mm3 BMP 05/16/25 01:38 Sodium 138 Potassium 3.7 Chloride 104 Carbon Dioxide 24 BUN 15 Creatinine 0.58 L Glucose 102 Calcium 9.3 Liver Function 05/16/25 Range/Units 01:38 Total Bilirubin 1.7 H (0.2-1.3) mg/dL AST 207 H (14-36) U/L ALT 102 H (6-35) U/L Alkaline Phosphatase 109 (38-126) U/L Albumin 4.7 (3.5-5.1) g/dL Urine 05/16/25 Range/Units 01:36 Urine Color Dark yellow (Yellow) Urine Appearance Cloudy H (Clear) Urine pH 5.5 (5.0-9.0) Ur Specific [place] 1.041 H (1.001-1.035) Urine Protein 1+ H (Negative) mg/dL Urine Glucose (UA) Negative (Negative) mg/dL Assessment and Plan Assessment and plan (1) Cholelithiasis: Code(s): K80.20 - Calculus of gallbladder without cholecystitis without obstruction Status: Acute (2) Elevated liver enzymes: Code(s): R74.8 - Abnormal levels of other serum enzymes Status: Acute Plan This is a pleasant 19-year-old female PMH nicotine vaping, class 1 obesity, who presents to [facility] on 05/16/2025 complaining of right upper quadrant pain with nausea vomiting for 1 day. She has had similar pain on a few occasions in the past few months, she last visited [place] and was discharged from the ER. She has not had any abdominal surgeries, her 1 was a vaginal delivery. She denies fever, chest pain, shortness of breath, bloody vomitus, diarrhea. Denies urinary frequency, dysuria, foul- smelling urine. WBC 84561, serum creatinine 0.58, total bilirubin 1.7, AST 207, ALT 102, lipase 86, urinalysis grossly abnormal with bacteria, WBC, leukocyte esterase, however contaminated. Patient received morphine 4 mg IV, ceftriaxone, 1 L normal saline bolus, Zofran 4 mg IV x1. She was resting comfortably thereafter. CT abdomen and pelvis with contrast demonstrates gallstones, official radiology interpretation is pending. ----- Pending MRCP. NPO. Zofran and morphine p.r.n.. Normal saline at 125 cc/hour. She has no urinary symptoms, follow-up urine culture. Nicotine abuse counseling provided. Patient would like to be full code. SCDs. Normal saline. NPO. Admission to medical floor. Hospitalist MIPS Advance Care Plan I have confirmed that the patient's Advanced Care Plan is present, code status is documented, or surrogate decision maker is listed in patient medical record.: Yes Medication Reconciliation I have utilized all available resources to obtain, update and review the patients current medications (includes all prescriptions, OTC, herbals, cannabis, and nutritional supplements).: Yes
--- NOTE | 2025-05-16 07:36 | PM.IMPN ---
Progress Note: A&P Assessment and Plan (1) Cholelithiasis: Code(s): K80.20 - Calculus of gallbladder without cholecystitis without obstruction Status: Acute (2) Elevated liver enzymes: Code(s): R74.8 - Abnormal levels of other serum enzymes Status: Acute Plan This is a pleasant 19-year-old female PMH nicotine vaping, class 1 obesity, who presents to [facility] on 05/16/2025 complaining of right upper quadrant pain with nausea vomiting for 1 day. She has had similar pain on a few occasions in the past few months, she last visited [place] and was discharged from the ER. She has not had any abdominal surgeries, her 1 was a vaginal delivery. She denies fever, chest pain, shortness of breath, bloody vomitus, diarrhea. Denies urinary frequency, dysuria, foul-smelling urine. WBC 90871, serum creatinine 0.58, total bilirubin 1.7, AST 207, ALT 102, lipase 86, urinalysis grossly abnormal with bacteria, WBC, leukocyte esterase, however contaminated. Patient received morphine 4 mg IV, ceftriaxone, 1 L normal saline bolus, Zofran 4 mg IV x1. She was resting comfortably thereafter. CT abdomen and pelvis with contrast demonstrates gallstones. ----- Pending MRCP for today. -gi is following NPO, IV fluids- Normal saline at 125 cc/hour. Zofran and morphine p.r.n.. She has no urinary symptoms, follow-up urine culture. Nicotine abuse counseling provided. Patient would like to be full code. SCDs. Normal saline. NPO. Admission to medical floor. Time Spent With Patient Time with patient: 25 - 35 minutes Subjective Date/time seen: 05/16/25 07:36 Interval history: ... 19-year-old female PMH nicotine vaping, class 1 obesity, who presents to [facility] on 05/16/2025 complaining of right upper quadrant pain with nausea vomiting for 1 day. She has had similar pain on a few occasions in the past few months, she last visited [place] and was discharged from the ER. She has not had any abdominal surgeries, her 1 was a vaginal delivery. She denies fever, chest pain, shortness of breath, bloody vomitus, diarrhea. Denies urinary frequency, dysuria, foul-smelling urine. WBC 14740, serum creatinine 0.58, total bilirubin 1.7, AST 207, ALT 102, lipase 86, urinalysis grossly abnormal with bacteria, WBC, leukocyte esterase, however contaminated. Patient received morphine 4 mg IV, ceftriaxone, 1 L normal saline bolus, Zofran 4 mg IV x1. She was resting comfortably thereafter. CT abdomen and pelvis with contrast demonstrates gallstones, official radiology interpretation is pending. Pt is seen and examined. NPO, pain, nausea control. she is resting in bed, denies any acute pain. family at the bedside, updated. Review of Systems Review of Systems: All systems reviewed & are unremarkable except as noted in HPI and below (Subjective) Exam Narrative: calm and comfortable Const: General: comfortable and no acute distress Other: A&O x3 Eyes: Pupils: Equal, round and reactive pupils present Neck: Neck: supple Resp: Effort & Inspection: normal respiratory effort Auscultation: clear to auscultation bilaterally Cardio: Rate: regular rate Rhythm: regular rhythm Heart sounds: no murmurs GI: Auscultation: normal bowel sounds Other: Right upper quadrant pain with positive Armas sign Neuro: Cranial nerves: Yes Equal, round and reactive pupils present Motor exam (neuro): 5/5 motor strength present throughout Extrem: General: no edema Objective Data Vital Signs Vital Signs: Vital Signs - 24 hr 05/16/25 00:20 05/16/25 01:43 05/16/25 01:45 Temperature 97.8 F Pulse Rate 67 74 70 Respiratory Rate 19 14 19 Blood Pressure 109/85 Pulse Oximetry 98 99 99 Oxygen Delivery Room Air 05/16/25 03:01 05/16/25 03:02 05/16/25 03:15 Temperature Pulse Rate 64 69 72 Respiratory Rate 17 19 20 Blood Pressure 102/68 Pulse Oximetry 99 100 100 Oxygen Delivery 05/16/25 04:43 05/16/25 06:00 Temperature 98.2 F Pulse Rate 67 57 L Respiratory Rate 15 16 Blood Pressure 101/69 93/52 L Pulse Oximetry 99 99 Oxygen Delivery Intake/Output Intake/Output: Intake & Output 05/13/25 05/14/25 05/15/25 05/16/25 23:59 23:59 23:59 23:59 Intake Total 1050 Balance 1050 Meds/Results Medications: Active Medications Generic Name Dose Route Start Last Admin Trade Name Freq PRN Reason Stop Dose Admin Sodium Chloride 1,000 mls @ 125 mls/hr 05/16/25 02:55 05/16/25 03:30 Normal Saline Iv IV CONT 125 mls/hr .Q8H WATSON Administration Ceftriaxone Sodium 1 gm/ 50 mls @ 100 mls/hr 05/17/25 04:00 Sodium Chloride IVPB Q24H WATSON Morphine Sulfate 2 mg 05/16/25 05:58 Morphine Sulfate (*Crx) 4 Mg/Ml Inj IV PUSH Q2H PRN Pain Rated 7-10 Ondansetron HCl 4 mg 05/16/25 02:55 Ondansetron Inj 4 Mg/2 Ml Vial IV PUSH Q4H PRN Nausea Labs Labs: Laboratory Results - last 24 hr 05/16/25 05/16/25 01:36 01:38 WBC 11.8 H RBC 5.01 Hgb 13.7 D Hct 41.6 MCV 83.0 MCH 27.3 MCHC 32.9 RDW 13.2 Plt Count 275 MPV 8.2 Immature Gran % (Auto) 0.5 Neut % (Auto) 86.0 H Lymph % (Auto) 8.4 L [place] % (Auto) 4.8 Eos % (Auto) 0.1 Baso % (Auto) 0.2 Lymph # (Auto) 0.99 [place] # (Auto) 0.6 Eos # (Auto) 0.0 Baso # (Auto) 0.0 Abs Immat Gran (auto) 0.06 H Absolute Neuts (auto) 10.2 H Absolute Nucleated RBC 0.000 Nucleated RBC % 0.0 Sodium 138 Potassium 3.7 Chloride 104 Carbon Dioxide 24 Anion Gap 10 BUN 15 Creatinine 0.58 L Estim Creat Clear Calc 133 Estimated GFR > 60 Glucose 102 Calcium 9.3 Total Bilirubin 1.7 H AST 207 H ALT 102 H Alkaline Phosphatase 109 Total Protein 8.3 H Albumin 4.7 Lipase 86 Urine Color Dark yellow Urine Appearance Cloudy H Urine pH 5.5 Ur Specific [place] 1.041 H Urine Protein 1+ H Urine Glucose (UA) Negative Urine Ketones 2+ H Ur Blood (Man) Negative Urine Nitrate Negative Urine Bilirubin 2+ H Urine Urobilinogen 1.0 Leukocyte Esterase Rfl Trace H Urine RBC 3-5 H Urine WBC 11-20 H Ur Squamous Epith Cells Moderate Urine Bacteria 4+ H Urine Casts 3-5 POC Urine HCG, Qual Negative
--- NOTE | 2025-05-16 14:40 | WPDGICN ---
Assessment and Plan Assessment and plan (1) Cholelithiasis: Qualifiers: Cholelithiasis location: gallbladder Cholecystitis presence: without cholecystitis Biliary obstruction: without biliary obstruction Qualified Code(s): K80.20 - Calculus of gallbladder without cholecystitis without obstruction Code(s): K80.20 - Calculus of gallbladder without cholecystitis without obstruction Status: Acute (2) Elevated liver enzymes: Code(s): R74.8 - Abnormal levels of other serum enzymes Status: Acute (3) Intermittent upper abdominal pain: Code(s): R10.10 - Upper abdominal pain, unspecified Status: Acute Plan 1. Cyclical Upper Abdominal Pain/Nausea & Vomiting/Elevated LFTs/Gallstones: CT scan on 05/16/2025 showed a gallstone in the gallbladder. MRCP with gallstones but no choledocholithiases. She has recurrent episodes of postprandial upper pain radiating to the back, associated with nausea and vomiting on 3 different occasions all after eating fatty meal. She is asymptomatic in between. Liver enzymes are elevated but more in a hepatocellular pattern, although total bilirubin was elevated at 1.7. She is so symptoms of chronic GERD to suggest etiology. She is currently asymptomatic and having no further abdominal pain. I suspect these episodes are biliary secondary to gallstones. . - No ERCP indicated at this time. - Consider surgical referral for cholecystectomy and consider IOC. - Low fat diet recommended. Thank you very much for allowing me to share in the care of this very nice patient. This report may have been done utilizing a voice recognition system. Attempts have been made to correct errors. However, there may be uncorrected grammatical, spelling, and recognition errors present.No . GI Consult Note Consult date/time: 05/16/25 14:40 Reason for consult: elevated LFT/RUQ pain HPI: This is a pleasant 19 year old female with a past medical surgical history of anxiety and appendectomy. She presented to the ER on 05/16/2025 with complaints of abdominal pain. GI consulted for evaluation for right-sided abdominal pain and elevated LFTs. She has had about two to three episodes of similar pain over the last several months. Was seen at [facility] for similar symptoms 1 month ago with no findings per patient, this was after eating Steak and Shake. The most recent episode started yesterday around 8:30 PM after eating a fried chicken sandwich at 8:00 PM. The pain is located in the entire upper abdomen, radiating to her back. She describes the pain as a 7/10 at its worst and feeling like contractions. The pain episodes typically resolves slowly over several hours. This time it resolved with IV morphine. With these episodes, she experiences both nausea and vomiting of liquid/bile. She reports someone told her she looked yellow about a month ago during a similar episode. She has tried Tylenol and ibuprofen without relief. She had a baby in April 2024 and had no gallbladder issues during her . A family history of cholecystectomy is present in almost all female family members. She denies any current aspirin or NSAID use. She denies any prior history of heartburn, reflux, sour taste, change in bowel habits, constipation, diarrhea, melena, hematochezia, dysphagia, odynophagia, GERD, early satiety, weight loss, fevers, or appetite loss. At this time she is currently asymptomatic with no abdominal pain. She has not needed any pain medication. She is asking, if she can eat. ENDOSCOPY HISTORY: EGD: None COLONOSCOPY: None LABS AND STOOL STUDIES: 05/16/2025: BMP: sodium 138, potassium 3.7, BUN 15, creatinine 0.58, WBC 11.8, HGB 13, HCT 41, MCV 83, PLATELETS 275 total bilirubin 1.7, AST 207, ALT 102, Alkaline Phosphate 109 Albumin 4.7, Lipase 86 IMAGING: MRCP 05/16/2025 Impression: Cholelithiasis within the normal gallbladder with no choledocholithiasis and no intra or extrahepatic biliary ductal dilation. CT abdomen pelvis w con 05/16/2025 Impression: Gallstone in the gallbladder. No other etiology for symptoms. [facility] Past Medical History Medical History Anxiety Family History Family History Grandparent Breast cancer Diabetes mellitus Thyroid disorder Mother Diabetes mellitus Depression with anxiety Sibling Depression with anxiety Social History Social History Smoking status: Never smoker Tobacco type: e-cigarettes/vaping Second hand tobacco smoke exposure: No Smoking end date: 04/09/23 Alcohol intake: never Substance use: never Substance use type: does not use Do You Feel Safe in your Home?: Yes Lack of Transportation: No Lack of Food: Never True Current Housing: I Have Housing Concerned About Future Housing: No Difficulty Paying Gas/Electric Bills: No Difficulty Paying for Meds: No Currently Unemployed: No Education: High School Diploma/GED Difficulty w/ Childcare or Family Care: No Spiritual care concerns: No Meds Home Medications and Allergies Home Medications ?Medication ?Instructions ?Recorded ?Confirmed ?Type ibuprofen 600 mg tablet 600 mg PO Q6H PRN Cramping #30 tabs 05/03/24 05/16/25 Rx Allergies Allergy/AdvReac Type Severity Reaction Status Date / Time No Known Allergies Allergy Verified 05/16/25 00:13 Vital Signs Vital Signs - 24 hr 05/16/25 00:20 05/16/25 01:43 05/16/25 01:45 Temperature 97.8 F Pulse Rate 67 74 70 Respiratory Rate 19 14 19 Blood Pressure 109/85 Pulse Oximetry 98 99 99 Oxygen Delivery Room Air 05/16/25 03:01 05/16/25 03:02 05/16/25 03:15 Temperature Pulse Rate 64 69 72 Respiratory Rate 17 19 20 Blood Pressure 102/68 Pulse Oximetry 99 100 100 Oxygen Delivery 05/16/25 04:43 05/16/25 06:00 Temperature 98.2 F Pulse Rate 67 57 L Respiratory Rate 15 16 Blood Pressure 101/69 93/52 L Pulse Oximetry 99 99 Oxygen Delivery Exam Const: General: comfortable and no acute distress Eyes: General: appearance normal, both eyes and all related structures Resp: Effort & Inspection: normal respiratory effort Auscultation: clear to auscultation bilaterally Cardio: Rate: regular rate Rhythm: regular rhythm GI: GI Palp: Yes Soft to palpation and No Tenderness to palpation present (GI) Auscultation: normal bowel sounds Skin: General skin exam: normal color Neuro: Speech: normal speech Extrem: General: normal to inspection Psych: Mental Status: mental status grossly normal Affect: normal affect Results Labs 05/16/25 01:38 05/16/25 01:38 Labs: Short CBC 05/16/25 Range/Units 01:38 WBC 11.8 H (4.5-10.0) K/mm3 Hgb 13.7 D (12.0-15.0) g/dL Hct 41.6 (37.0-47.0) % Plt Count 275 (150-375) k/mm3 BMP 05/16/25 01:38 Sodium 138 Potassium 3.7 Chloride 104 Carbon Dioxide 24 BUN 15 Creatinine 0.58 L Glucose 102 Calcium 9.3 Liver Function 05/16/25 Range/Units 01:38 Total Bilirubin 1.7 H (0.2-1.3) mg/dL AST 207 H (14-36) U/L ALT 102 H (6-35) U/L Alkaline Phosphatase 109 (38-126) U/L Albumin 4.7 (3.5-5.1) g/dL Urine 05/16/25 Range/Units 01:36 Urine Color Dark yellow (Yellow) Urine Appearance Cloudy H (Clear) Urine pH 5.5 (5.0-9.0) Ur Specific [place] 1.041 H (1.001-1.035) Urine Protein 1+ H (Negative) mg/dL Urine Glucose (UA) Negative (Negative) mg/dL
--- NOTE | 2025-05-16 16:30 | PM.CNGS ---
Assessment and Plan Assessment and plan (1) Cholelithiasis: Qualifiers: Biliary obstruction: without biliary obstruction Cholecystitis presence: without cholecystitis Cholelithiasis location: gallbladder Qualified Code(s): K80.20 - Calculus of gallbladder without cholecystitis without obstruction Code(s): K80.20 - Calculus of gallbladder without cholecystitis without obstruction Status: Acute Assessment and Plan: Patient presented to the ED this morning with epigastric and right upper quadrant pain that started last night. She has also had associated vomiting. This is patient's 3rd occurrence of these symptoms. She was previously seen about a month ago at [facility]. Reportedly, imaging was performed and did not show any acute abnormalities. Upon today's admission, labs were drawn and demonstrated a white blood cell count of 11.8. Total bilirubin elevated 1.7. AST and ALT also elevated. CT of the abdomen and pelvis demonstrated no etiology for the patient's symptoms. MRCP demonstrated cholelithiasis with normal gallbladder with no choledocholithiasis and no intra or extrahepatic biliary ductal dilation. An abdominal ultrasound was then performed and demonstrated cholelithiasis without evidence acute cholecystitis or biliary ductal dilation. Upon my exam today, patient is mildly tender to right upper quadrant. Currently being treated with morphine and Zofran. Given a dose of ceftriaxone in the ER. Patient will undergo laparoscopic cholecystectomy tomorrow. Risks, benefits, and alternatives discussed with the patient and her family at bedside. She is agreeable to proceed with surgery. Okay to have diet tonight. NPO at midnight. Plan Discussed patient's case and plan of care with Dr. Varner. History of Present Illness Consult details Consult date: 05/16/25 Narrative: Patient is a 19-year-old female who we have been asked to see in surgical consultation for cholecystectomy. Patient states that epigastric and right upper quadrant pain started around 8:30 p.m. last night. Patient also had associated nausea and vomiting that started around 11:30 p.m. Due to increasing severity of symptoms, patient presented to [facility]. Upon admission, her lab work revealed elevated bilirubin and liver enzymes. Elevated white blood cell count of 11.8. A CT of the abdomen and pelvis demonstrated no etiology for patient's symptoms. An MRCP was then performed. This demonstrated cholelithiasis within the normal gallbladder with no choledocholithiasis and no intra or extrahepatic biliary ductal dilation. An ultrasound then revealed cholelithiasis without evidence acute cholecystitis or biliary ductal dilation. Patient admits that this is her 3rd time having these same symptoms. The 1st time, she was able to conservatively treat at home. With the second occurrence of these symptoms, she presented to [facility]. Imaging did not reveal any acute findings and she was sent home. Patient's previous abdominal surgeries include laparoscopic appendectomy. Last bowel movement was a few days ago. Patient's family at bedside states that this is normal for her, as she does not eat a very high fiber diet or drink much water. [facility] Past Medical History Medical History Anxiety Family History Family History Grandparent Breast cancer Diabetes mellitus Thyroid disorder Mother Diabetes mellitus Depression with anxiety Sibling Depression with anxiety Social History Social History Smoking status: Never smoker Tobacco type: e-cigarettes/vaping Second hand tobacco smoke exposure: No Smoking end date: 04/09/23 Alcohol intake: never Substance use: never Substance use type: does not use Do You Feel Safe in your Home?: Yes Lack of Transportation: No Lack of Food: Never True Current Housing: I Have Housing Concerned About Future Housing: No Difficulty Paying Gas/Electric Bills: No Difficulty Paying for Meds: No Currently Unemployed: No Education: High School Diploma/GED Difficulty w/ Childcare or Family Care: No Spiritual care concerns: No Meds Home Medications and Allergies Home Medications ?Medication ?Instructions ?Recorded ?Confirmed ?Type ibuprofen 600 mg tablet 600 mg PO Q6H PRN Cramping #30 tabs 05/03/24 05/16/25 Rx Allergies Allergy/AdvReac Type Severity Reaction Status Date / Time No Known Allergies Allergy Verified 05/16/25 00:13 Vital Signs Vital Signs - 24 hr 05/16/25 00:20 05/16/25 01:43 05/16/25 01:45 Temperature 97.8 F Pulse Rate 67 74 70 Respiratory Rate 19 14 19 Blood Pressure 109/85 Pulse Oximetry 98 99 99 Oxygen Delivery Room Air 05/16/25 03:01 05/16/25 03:02 05/16/25 03:15 Temperature Pulse Rate 64 69 72 Respiratory Rate 17 19 20 Blood Pressure 102/68 Pulse Oximetry 99 100 100 Oxygen Delivery 05/16/25 04:43 05/16/25 06:00 05/16/25 14:00 Temperature 98.2 F 97.1 F L Pulse Rate 67 57 L 73 Respiratory Rate 15 16 16 Blood Pressure 101/69 93/52 L 106/66 Pulse Oximetry 99 99 95 Oxygen Delivery Exam Const: General: comfortable and no acute distress Eyes: General: appearance normal, both eyes and all related structures Neck: Neck: supple and no JVD Resp: Effort & Inspection: normal respiratory effort Cardio: Rate: regular rate GI: Inspection: non-distended GI Palp: Yes Soft to palpation and Yes Tenderness to palpation present (GI) (RUQ pain) Auscultation: abnormal bowel sounds (hypoactive) Skin: General skin exam: normal color and no rashes or lesions noted Neuro: Speech: normal speech Extrem: General: normal to inspection Psych: Mental Status: mental status grossly normal Results Labs 05/16/25 01:38 05/16/25 01:38 Labs: Abnormal lab results 05/16/25 05/16/25 Range/Units 01:36 01:38 WBC 11.8 H (4.5-10.0) K/mm3 Neut % (Auto) 86.0 H (45.5-73.1) % Lymph % (Auto) 8.4 L (18.3-44.2) % Abs Immat Gran (auto) 0.06 H (0.00-0.031) K/mm3 Absolute Neuts (auto) 10.2 H (1.3-6.7) K/mm3 Creatinine 0.58 L (0.7-1.0) mg/dL Total Bilirubin 1.7 H (0.2-1.3) mg/dL AST 207 H (14-36) U/L ALT 102 H (6-35) U/L Total Protein 8.3 H (6.3-8.2) g/dL Urine Appearance Cloudy H (Clear) Ur Specific [place] 1.041 H (1.001-1.035) Urine Protein 1+ H (Negative) mg/dL Urine Ketones 2+ H (Negative) mg/dL Urine Bilirubin 2+ H (Negative) Leukocyte Esterase Rfl Trace H (Negative) ELIZABETH/UL Urine RBC 3-5 H (0-2) /hpf Urine WBC 11-20 H (0-3) /hpf Urine Bacteria 4+ H /hpf Diabetes panel 05/16/25 Range/Units 01:38 Sodium 138 (137-145) mmol/L Potassium 3.7 (3.4-5.0) mmol/L Chloride 104 (98-107) mmol/L Carbon Dioxide 24 (22-30) mmol/L BUN 15 (7-17) mg/dL Creatinine 0.58 L (0.7-1.0) mg/dL Glucose 102 (65-110) mg/dL Calcium 9.3 (8.4-10.2) mg/dL AST 207 H (14-36) U/L ALT 102 H (6-35) U/L Alkaline Phosphatase 109 (38-126) U/L Total Protein 8.3 H (6.3-8.2) g/dL Albumin 4.7 (3.5-5.1) g/dL Calcium panel 05/16/25 Range/Units 01:38 Calcium 9.3 (8.4-10.2) mg/dL Albumin 4.7 (3.5-5.1) g/dL Pituitary panel 05/16/25 Range/Units 01:38 Sodium 138 (137-145) mmol/L Potassium 3.7 (3.4-5.0) mmol/L Chloride 104 (98-107) mmol/L Carbon Dioxide 24 (22-30) mmol/L BUN 15 (7-17) mg/dL Creatinine 0.58 L (0.7-1.0) mg/dL Glucose 102 (65-110) mg/dL Calcium 9.3 (8.4-10.2) mg/dL Adrenal panel 05/16/25 Range/Units 01:38 Sodium 138 (137-145) mmol/L Potassium 3.7 (3.4-5.0) mmol/L Chloride 104 (98-107) mmol/L Carbon Dioxide 24 (22-30) mmol/L BUN 15 (7-17) mg/dL Creatinine 0.58 L (0.7-1.0) mg/dL Glucose 102 (65-110) mg/dL Calcium 9.3 (8.4-10.2) mg/dL Total Bilirubin 1.7 H (0.2-1.3) mg/dL AST 207 H (14-36) U/L ALT 102 H (6-35) U/L Alkaline Phosphatase 109 (38-126) U/L Total Protein 8.3 H (6.3-8.2) g/dL Albumin 4.7 (3.5-5.1) g/dL All other labs normal.
[2025-05-16] MEDS: PIPERACILLIN/TAZOBACTAM SOD 3.375 GM in SODIUM CHLORIDE 0.9% IV 50 ML 100 ML IVPB ×2 (17:42→23:00)
[2025-05-16] MEDS: LACTATED RINGERS 1,000 ML 100 ML IV CONT (22:51)
[2025-05-17] VITALS (10 sets, daily range): BP systolic 101–126; BP diastolic 57–73; PULSE 67–93; RESP 14–20; TEMP 36.5–36.8; O2SAT 99–100
[2025-05-17] MEDS: PIPERACILLIN/TAZOBACTAM SOD 3.375 GM in SODIUM CHLORIDE 0.9% IV 50 ML 100 ML IVPB ×2 (05:15→11:10)
[2025-05-17 06:05] LABS: Hematocrit 38.2 % (37.0-47.0); Hemoglobin 12.5 g/dL (12.0-15.0); Mean Corpuscular HGB Conc 32.7 g/dl (32-36); Mean Corpuscular Hemoglobin 27.7 pg (26-34); Mean Corpuscular Volume 84.7 fl (80-100); Platelet Count Result 248 k/mm3 (150-375); Red Blood Count 4.51 M/mm3 (4.2-5.4); White Blood Count 5.2 K/mm3 (4.5-10.0)
[2025-05-17 06:26] LABS: Anion Gap 4 mmol/L (4-12); Blood Urea Nitrogen 6 mg/dL (7-17); Calcium 8.3 mg/dL (8.4-10.2); Carbon Dioxide 25 mmol/L (22-30); Chloride 107 mmol/L (98-107); Estimated CRCL calculation 135 ml/min; Estimated Glomerular Filt Rate > 60; Glucose 96 mg/dL (65-110); Potassium 4.1 mmol/L (3.4-5.0); Sodium 136 mmol/L (137-145)
[2025-05-17] MEDS: LACTATED RINGERS 1,000 ML 100 ML IV CONT (08:54)
--- NOTE | 2025-05-17 10:19 | P.PNIM_ITS ---
Progress Note: A&P Assessment and Plan (1) Cholelithiasis: Qualifiers: Biliary obstruction: without biliary obstruction Cholecystitis presence: without cholecystitis Cholelithiasis location: gallbladder Qualified Code(s): K80.20 - Calculus of gallbladder without cholecystitis without obstruction Code(s): K80.20 - Calculus of gallbladder without cholecystitis without obstruction Status: Acute (2) Elevated liver enzymes: Code(s): R74.8 - Abnormal levels of other serum enzymes Status: Acute Plan This is a pleasant 19-year-old female PMH nicotine vaping, class 1 obesity, who presents to [facility] on 05/16/2025 complaining of right upper quadrant pain with nausea vomiting for 1 day. She has had similar pain on a few occasions in the past few months, she last visited [facility] and was discharged from the ER. She has not had any abdominal surgeries, her 1 was a vaginal delivery. She denies fever, chest pain, shortness of breath, bloody vomitus, diarrhea. Denies urinary frequency, dysuria, foul- smelling urine. WBC 47648, serum creatinine 0.58, total bilirubin 1.7, AST 207, ALT 102, lipase 86, urinalysis grossly abnormal with bacteria, WBC, leukocyte esterase, however contaminated. Patient received morphine 4 mg IV, ceftriaxone, 1 L normal saline bolus, Zofran 4 mg IV x1. She was resting comfortably thereafter. CT abdomen and pelvis with contrast demonstrates gallstones. ----- Pending MRCP for today. -gi is following NPO, IV fluids- Normal saline at 125 cc/hour. Zofran and morphine p.r.n.. She has no urinary symptoms, follow-up urine culture. Nicotine abuse counseling provided. Patient would like to be full code. SCDs. Normal saline. NPO. Admission to medical floor. 05/17- Recommend proceeding with laparoscopic cholecystectomy possible conversion open cholecystectomy during this admission. Time Spent With Patient Time with patient: 25 - 35 minutes Subjective Date/time seen: 05/17/25 10:19 Interval history: ... 19-year-old female PMH nicotine vaping, class 1 obesity, who presents to [facility] on 05/16/2025 complaining of right upper quadrant pain with nausea vomiting for 1 day. She has had similar pain on a few occasions in the past few months, she last visited [facility] and was discharged from the ER. She has not had any abdominal surgeries, her 1 was a vaginal delivery. She denies fever, chest pain, shortness of breath, bloody vomitus, diarrhea. Denies urinary frequency, dysuria, foul-smelling urine. WBC 74093, serum c reatinine 0.58, total bilirubin 1.7, AST 207, ALT 102, lipase 86, urinalysis grossly abnormal with bacteria, WBC, leukocyte esterase, however contaminated. Patient received morphine 4 mg IV, ceftriaxone, 1 L normal saline bolus, Zofran 4 mg IV x1. She was resting comfortably thereafter. CT abdomen and pelvis with contrast demonstrates gallstones, official radiology interpretation is pending. Pt is seen and examined. surgery was consulted: Recommend proceeding with laparoscopic cholecystectomy possible conversion open cholecystectomy during this admission. pain is well controlled Review of Systems Review of Systems: All systems reviewed & are unremarkable except as noted in HPI and below (Subjective) Exam Narrative: calm and comfortable, resting in bed Const: General: comfortable and no acute distress Other: A&O x3 Eyes: Pupils: Equal, round and reactive pupils present Neck: Neck: supple Resp: Effort & Inspection: normal respiratory effort Auscultation: clear to auscultation bilaterally Cardio: Rate: regular rate Rhythm: regular rhythm Heart sounds: no murmurs GI: Auscultation: normal bowel sounds Other: Right upper quadrant pain with positive Armas sign Neuro: Cranial nerves: Yes Equal, round and reactive pupils present Motor exam (neuro): 5/5 motor strength present throughout Extrem: General: no edema Objective Data Vital Signs Vital Signs: Vital Signs - 24 hr 05/16/25 14:00 05/16/25 20:00 05/16/25 21:35 Temperature 97.1 F L 98.0 F Pulse Rate 73 81 81 Respiratory Rate 16 15 15 Blood Pressure 106/66 106/60 Pulse Oximetry 95 97 97 Oxygen Delivery Room Air 05/17/25 06:00 Temperature 97.7 F Pulse Rate 67 Respiratory Rate 16 Blood Pressure 101/64 Pulse Oximetry 99 Oxygen Delivery Intake/Output Intake/Output: Intake & Output 05/14/25 05/15/25 05/16/25 05/17/25 23:59 23:59 23:59 23:59 Intake Total 3375.4 1200 Balance 3375.4 1200 Meds/Results Medications: Active Medications Generic Name Dose Route Start Last Admin Trade Name Freq PRN Reason Stop Dose Admin Sodium Chloride 1,000 mls @ 125 mls/hr 05/16/25 02:55 05/17/25 04:47 Normal Saline Iv IV CONT Not Given .Q8H WATSON Piperacillin Sod/Tazobactam 50 mls @ 100 mls/hr 05/16/25 18:00 05/17/25 05:15 Sod 3.375 gm/ Sodium Chloride IVPB 100 mls/hr Q6HR WATSON Administration Lactated Ringer's 1,000 mls @ 100 mls/hr 05/17/25 00:01 05/17/25 08:54 Lr - Lactated Ringers Iv IV CONT 100 mls/hr .Q10H WATSON Administration Morphine Sulfate 2 mg 05/16/25 05:58 Morphine Sulfate (*Crx) 4 Mg/Ml Inj IV PUSH Q2H PRN Pain Rated 7-10 Ondansetron HCl 4 mg 05/16/25 02:55 Ondansetron Inj 4 Mg/2 Ml Vial IV PUSH Q4H PRN Nausea Radiology Results: ITS Impressions Abdomen/Pelvis CT 05/16/25 08:26 IMPRESSION: 1. No etiology for the patient's symptoms. MRCP 05/16/25 14:11 IMPRESSION: 1. Cholelithiasis within the normal gallbladder with no choledocholithiasis and no intra or extrahepatic biliary ductal dilation. Abdomen Ultrasound 05/16/25 16:34 IMPRESSION: 1. Cholelithiasis without evident acute cholecystitis or biliary ductal dilation. Labs Labs: Laboratory Results - last 24 hr 05/17/25 04:58 WBC 5.2 RBC 4.51 Hgb 12.5 Hct 38.2 MCV 84.7 MCH 27.7 MCHC 32.7 RDW 13.5 Plt Count 248 MPV 8.9 Sodium 136 L Potassium 4.1 Chloride 107 Carbon Dioxide 25 Anion Gap 4 BUN 6 L D Creatinine 0.58 L Estim Creat Clear Calc 135 Estimated GFR > 60 Glucose 96 Calcium 8.3 L
[2025-05-17 10:56] LABS: Alanine Aminotransferase 140 U/L (6-35); Albumin Level 3.5 g/dL (3.5-5.1); Alkaline Phosphatase 96 U/L (38-126); Aspartate Amino Transferase 118 U/L (14-36); Bilirubin,Total 0.3 mg/dL (0.2-1.3); Total Protein 6.4 g/dL (6.3-8.2)
--- NOTE | 2025-05-17 12:39 | PC.NURSE ---
To OR per Wheelchair IV access locked. Report given to Mary
--- NOTE | 2025-05-17 13:05 | P.PNAN_ITS ---
Anes - Initial Pre Proc Eval Procedure: Operation Date: 05/17/25 13:30 Proposed Procedures p Laparoscopic Cholecystectomy - Jonathan Varner MD Date/Time: 05/17/25 13:05 Surgeon: Kimberlyn Cobb MD Pre Op Diagnosis: R upper quadrant abdominal pain, gallstones, eleva Patient Data Age: 19 Gender: F Height: 1.6 m Weight: 84.9 kg Last Vital Signs Temp 36.5 C 05/17/25 06:00 Pulse 67 05/17/25 06:00 Resp 16 05/17/25 06:00 BP 101/64 05/17/25 06:00 Pulse Ox 99 05/17/25 06:00 O2 Del Method Room Air 05/16/25 20:00 Allergies Allergy/AdvReac Type Severity Reaction Status Date / Time No Known Allergies Allergy Verified 05/16/25 00:13 Home Medications ?Medication ?Instructions ?Recorded ?Confirmed ?Type ibuprofen 600 mg tablet 600 mg PO Q6H PRN Cramping # 30 tabs 05/03/24 05/16/25 Rx Laboratory Tests 05/17/25 04:58 WBC 5.2 K/mm3 (4.5-10.0) RBC 4.51 M/mm3 (4.2-5.4) Hgb 12.5 g/dL (12.0-15.0) Hct 38.2 % (37.0-47.0) MCV 84.7 fl (80-100) MCH 27.7 pg (26-34) MCHC 32.7 g/dl (32-36) RDW 13.5 % (11.5-14.5) Plt Count 248 k/mm3 (150-375) MPV 8.9 fl (7.4-10.4) Sodium 136 L mmol/L (137-145) Potassium 4.1 mmol/L (3.4-5.0) Chloride 107 mmol/L (98-107) Carbon Dioxide 25 mmol/L (22-30) Anion Gap 4 mmol/L (4-12) BUN 6 L D mg/dL (7-17) Creatinine 0.58 L mg/dL (0.7-1.0) Estim Creat Clear Calc 135 ml/min Estimated GFR > 60 (59 - ) Glucose 96 mg/dL (65-110) Calcium 8.3 L mg/dL (8.4-10.2) Total Bilirubin 0.3 mg/dL (0.2-1.3) Direct Bilirubin 0.0 mg/dL (0-0.3) AST 118 H U/L (14-36) ALT 140 H U/L (6-35) Alkaline Phosphatase 96 U/L (38-126) Total Protein 6.4 g/dL (6.3-8.2) Albumin 3.5 g/dL (3.5-5.1) Patient hx anesthesia problems: none Family hx anesthesia problems: none Results Review: All pre-operative results and documents have been reviewed as part of the pre- operative evaluation. [facility] Past Medical History Medical History Anxiety Family History Family History Grandparent Breast cancer Diabetes mellitus Thyroid disorder Mother Diabetes mellitus Depression with anxiety Sibling Depression with anxiety Social History Social History Smoking status: Never smoker Tobacco type: e-cigarettes/vaping Second hand tobacco smoke exposure: No Smoking end date: 04/09/23 Alcohol intake: never Substance use: never Substance use type: does not use Do You Feel Safe in your Home?: Yes Lack of Transportation: No Lack of Food: Never True Current Housing: I Have Housing Concerned About Future Housing: No Difficulty Paying Gas/Electric Bills: No Difficulty Paying for Meds: No Currently Unemployed: No Education: High School Diploma/GED Difficulty w/ Childcare or Family Care: No Spiritual care concerns: No Anes - Eval Final PreProcedure Day of Procedure 05/17/25 13:05 Patient weight: obese Heart: regular rate and rhythm Lungs: clear to auscultation Airway: Mallampati scale class II Neurological: alert and oriented Last oral intake: >/= 8 hours ASA classification: II Emergent: no Anesthetic plan: proceed Anesthesia type and monitoring: general ETT and standard monitoring Results Review: All pre-operative results and documents have been reviewed as part of the pre- operative evaluation. Informed Consent: The patient's anesthetic plan and its attendant risks and benefits were discussed with the patient/family/POA. Questions were solicited and answers provided to the satisfaction of the patient/family/POA.
--- NOTE | 2025-05-17 13:11 | WPDHPUPDATE1 ---
History and Physical Update Update Date/Time: 05/17/25 13:11 History and Physical has been reviewed, including an updated exam of the patient. There are NO changes in the patient's condition. Risks, benefits, and alternatives have been discussed and questions answered. Patient agrees to proceed with procedure.
[2025-05-17] MEDS: KETOROLAC 15 MG/ML VIAL (*BKC) IV PUSH (14:26)
[2025-05-17] MEDS: LIDO 1%/EPINEPHRINE 1:100,000 50 ML VIAL 30 ML INFILTRATE (14:32)
--- NOTE | 2025-05-17 14:46 | P.OP_ITS ---
Procedure Note - Detailed Date of Procedure 05/17/25 Pre-op Diagnosis Acute cholecystitis secondary to cholelithiasis Post-op Diagnosis Same Procedure Performed Laparoscopic cholecystectomy Surgeon Jonathan Varner MD Hoist Operator BERNADETTE Burgos Anesthesia General Indications Patient is a 19-year-old female who was admitted to the hospital severe right upper quadrant abdominal pain. She had slightly elevated white blood cell count and mild elevation of her liver enzymes. MRCP was performed showing no evidence of common bile duct dilatation no retained common bile duct stone. Gallstones were noted in the gallbladder. She presents now for a laparoscopic cholecystectomy. Findings The gallbladder was moderately distended with some mild erythema and edema of the gallbladder wall. There were no adhesions of the stomach, duodenum, omen jennifer, or colon to the gallbladder wall. Description of Procedure After informed consent was obtained patient brought to the operating room she was placed supine position and general endotracheal anesthesia was administered. The abdomen was then prepped draped usual sterile fashion. A time-out was then performed correctly identifying the patient as well as procedure to be performed. She was already on scheduled IV antibiotics. I 1st entered the abdomen left upper quadrant utilizing a 5mm Optiview port. Once inside the abdomen insufflated to adequate pneumoperitoneum of 15mmHg of CO2. I then placed additional trocar ports in the periumbilical position as well as the epigastric position and then 2 more in the right subcostal position. Lap aroscopic then switched over to the periumbilical trocar port and looking to the upper portions of the abdomen the gallbladder was visualized and it was moderately distended. The gallbladder wall was mildly thickened and edematous. No erythema was noted. There is no evidence of adhesions of the stomach, duodenum, omentum, or colon to the gallbladder wall. A laparoscopic grasper used to hold gallbladder at the dome and the gallbladder was elevated over the right half liver towards the right shoulder. A 2nd grasper used to hold the gallbladder infundibulum. Then with lateral traction on the infundibular gallbladder and strip down the visceral peritoneum off of the infundibulum of the gallbladder until identified the cystic duct. The cystic duct was then dissected out circumferentially. The cystic artery was then identified as well and it was dissected out circumferentially as well. Posterior wall the gallbladder at the infundibulum dissected free of the liver into the critical v iew was obtained. At this point I then placed 2 clips proximally cystic duct and 2 clips distally high on infundibular gallbladder. Cystic duct was then divided Endo Quyen. In a similar fashion cystic artery was then clipped and divided as well. Gallbladder was then resected off the liver utilized electrocautery. No stones or bile was spilled from the gallbladder during this dissection. The gallbladder was then placed into an Endo-Catch bag and brought out through the epigastric port site. The gallbladder and its contents were sent to pathology for examination. I then irrigated out the right upper quadrant the abdomen gallbladder fossa sterile saline solution. Hemostasis was excellent. No evidence of bile leak was noted. I then proceeded to remove all the trocar ports under direct visualization. All port sites were hemostatic. The abdomen was allowed to decompress. The 10mm epigastric trocar port fascial defect was then closed utilizing 0 Vicryl suture at the fascial level. The skin edges in all the port sites were then approximated utilizing a running subcuticular 4 Monocryl suture. The incisions were then cleaned the skin glue was applied. The patient tolerated the procedure well no complications. All sponges, needles, and instrument counts were correct at the end procedure. EBL was _20__cc. The patient was awakened and taken to recovery in stable and satisfactory condition. Implants None Estimated Blood Loss 20 Drains No Packing No Pathology Yes (Gallbladder and gallstones to pathology) Complications No immediate complications Condition Stable Disposition PACU [facility] Billing Surgery - Charge Forward: Surgery Billing
[2025-05-17] MEDS: LACTATED RINGERS 1,000 ML 30 ML IV CONT ×2 (14:52)
--- NOTE | 2025-05-17 14:56 | S_PTH ---
PATIENT: Brit Lamas LOC: [id number] U#:[id number] AGE/SX: 19/F ROOM: 330 RE05/16/[address]: Chelsi Phillip MD : 2005 BED: 01 DIS: 05/19/2025 SPEC #: [id number] RECD: 05/18/25 07:22 STATUS: LUCY RERita #: [id number] AMEE: 05/17/25 14:[address]: Jonathan Varner DEPT: [facility] Surgical RECD BY: Kelsie Madison ENTERED: 05/18/25 07:22 SP TYPE: Surgical OTHR DR: Kimberlyn Cobb MD RECONCILIATION CLERK PHYSICIAN José Miguel Singh MD Tissues: A - Gallbladder Procedures: Hematoxylin and Eosin Stain Gross and Microscopic Level 3
[2025-05-17] MEDS: fentaNYL CITRATE INJ (*CRX) 100 MCG/2 ML VIAL 25 MCG IV PUSH ×8 (15:16→15:59)
--- NOTE | 2025-05-17 16:08 | PC.NURSE ---
Returned from OR per [ ]. Report received from [ akilah].
[2025-05-17] MEDS: MORPHINE SULFATE (*CRX) 4 MG/ML INJ 2 MG IV PUSH (16:24)
[2025-05-17] MEDS: ONDANSETRON INJ 4 MG/2 ML VIAL IV PUSH (16:41)
[2025-05-17] MEDS: HYDROcodone/acetaminophen (*CRX) 5-325 MG TABLET 1 TAB PO ×2 (17:01→23:02)
[2025-05-17] MEDS: oxyCODONE HCL (*CRX) 5 MG TAB IR PO (18:11)
[2025-05-17] MEDS: ACETAMINOPHEN 500 MG TABLET 1000 MG PO (20:30)
[2025-05-18] MEDS: oxyCODONE HCL (*CRX) 5 MG TAB IR PO (00:59)
[2025-05-18 03:07] VITALS: BP 109/55; PULSE 59; RESP 18; TEMP 37.1; O2SAT 100
[2025-05-18] MEDS: MORPHINE SULFATE (*CRX) 4 MG/ML INJ 2 MG IV PUSH ×2 (03:47→05:49)
[2025-05-18] MEDS: LACTATED RINGERS 1,000 ML 75 ML IV CONT ×2 (04:27→17:00)
[2025-05-18 07:00] VITALS: BP 108/70; PULSE 65; RESP 20; TEMP 37; O2SAT 98
[2025-05-18 08:04] LABS: Hematocrit 40.8 % (37.0-47.0); Hemoglobin 13.7 g/dL (12.0-15.0); Mean Corpuscular HGB Conc 33.6 g/dl (32-36); Mean Corpuscular Hemoglobin 27.7 pg (26-34); Mean Corpuscular Volume 82.6 fl (80-100); Platelet Count Result 281 k/mm3 (150-375); Red Blood Count 4.94 M/mm3 (4.2-5.4); White Blood Count 9.9 K/mm3 (4.5-10.0)
[2025-05-18 08:25] LABS: Anion Gap 8 mmol/L (4-12); Blood Urea Nitrogen 4 mg/dL (7-17); Calcium 9.3 mg/dL (8.4-10.2); Carbon Dioxide 24 mmol/L (22-30); Chloride 102 mmol/L (98-107); Estimated CRCL calculation 137 ml/min; Estimated Glomerular Filt Rate > 60; Glucose 92 mg/dL (65-110); Potassium 4.1 mmol/L (3.4-5.0); Sodium 134 mmol/L (137-145)
--- NOTE | 2025-05-18 09:10 | PM.DS ---
DS: Summary Time Spent with Patient Time attestation: Total time spent providing and/or coordinating discharge services: DS: Data Data Completed and Pending Pending studies at discharge: Pending at discharge 05/17/25 14:56 Surgical [PTH] Routine Labs on day of discharge: Labs from last 24 hours 05/18/25 05/17/25 07:45 04:58 WBC 9.9 RBC 4.94 Hgb 13.7 Hct 40.8 MCV 82.6 MCH 27.7 MCHC 33.6 RDW 13.1 Plt Count 281 MPV 8.5 Sodium 134 L 136 L Potassium 4.1 4.1 Chloride 102 107 Carbon Dioxide 24 25 Anion Gap 8 4 BUN 4 L 6 L D Creatinine 0.57 L 0.58 L Estim Creat Clear Calc 137 135 Estimated GFR > 60 > 60 Glucose 92 96 Calcium 9.3 8.3 L Total Bilirubin 0.3 Direct Bilirubin 0.0 AST 118 H ALT 140 H Alkaline Phosphatase 96 Total Protein 6.4 Albumin 3.5 Discharge Plan Discharge Consulting providers: José Miguel Singh; Jonathan Varner Patient Language: Hungarian Discharge Medications: No Action ibuprofen 600 mg Tablet 600 mg PO Q6H PRN (Reason: Cramping) Qty: 30 0RF Date of admission: 05/16/25 02:55 Primary Care Provider: PHYSICIAN,ACADEMIC AFFAIRS DIRECTOR Admitting Provider: Kimberlyn Cobb Attending physician on admission: Kimberlyn Cobb Condition: Stable
[2025-05-18] MEDS: HYDROcodone/acetaminophen (*CRX) 5-325 MG TABLET 1 TAB PO ×3 (10:14→18:58)
[2025-05-18 11:25] VITALS: O2SAT 97
[2025-05-18 14:29] VITALS: BP 102/66; PULSE 76; RESP 18; TEMP 36.1; O2SAT 97
--- NOTE | 2025-05-18 14:29 | WPDANESPN ---
Anes - Prog Note Post-Op Date/Time: 05/18/25 14:29 Cardiovascular status: normal Respiratory status: normal Airway patency: baseline Mental status: baseline Vital Signs: Last Vital Signs Temp 37.0 C 05/18/25 07:00 Pulse 65 05/18/25 07:00 Resp 20 05/18/25 07:00 BP 108/70 05/18/25 07:00 Pulse Ox 97 05/18/25 11:25 O2 Del Method Room Air 05/18/25 11:25 O2 Flow Rate 8 05/17/25 15:05 Pain Score (VAS): 2 I/O: Intake & Output 05/17/25 05/18/25 05/18/25 23:59 07:59 15:59 Intake Total 1500 200 Balance 1500 200 Laboratory Tests 05/18/25 07:45 05/18/25 07:45 05/18/25 07:45 WBC 9.9 RBC 4.94 Hgb 13.7 Hct 40.8 MCV 82.6 MCH 27.7 MCHC 33.6 RDW 13.1 Plt Count 281 MPV 8.5 Sodium 134 L Potassium 4.1 Chloride 102 Carbon Dioxide 24 Anion Gap 8 BUN 4 L Creatinine 0.57 L Estim Creat Clear Calc 137 Estimated GFR > 60 Glucose 92 Calcium 9.3 Patient Feedback: Patient satisfied with anesthetic care.
--- NOTE | 2025-05-18 14:39 | P.PNGS_ITS ---
Progress Note: A&P Assessment and Plan (1) Cholelithiasis: Qualifiers: Biliary obstruction: without biliary obstruction Cholecystitis presence: without cholecystitis Cholelithiasis location: gallbladder Qualified Code(s): K80.20 - Calculus of gallbladder without cholecystitis without obstruction Code(s): K80.20 - Calculus of gallbladder without cholecystitis without obstruction Status: Acute Assessment and Plan: Pod 1 status post laparoscopic cholecystectomy. Patient tolerated the procedure well. She does still complain of some epigastric pain that radiates to her back. Getting [place] and morphine for pain. She states that this sometimes helps but only for a small period of time. Pain is directly over where 1 of her incisions is. Pain is exacerbated by movement. Voiding appropriately and ambulating without assistance. She was able to eat a few bites of a hamburger for lunch. * Only BMP was ordered this morning. Hepatic panel ordered. * Once patient is able to eat a bit more and tolerate pain with oral medication only, then she is stable for discharge. She will follow up with Dr. Varner in the office in 2 weeks. Plan Discussed patient's case and plan of care with Dr. Varner. Subjective Subjective Date/Time Seen: 05/18/25 14:39 Patient reports: no new complaints, tolerating a regular diet and afebrile Interval history: Patient complains of upper abdominal pain, mostly around incision. She states that this pain is exacerbated by movement. She does say that it feels deep and sometimes goes to her back. Afebrile. Voiding appropriately in ambulating without assistance. Was able to eat a few bites of a hamburger for lunch. No BM yet. Exam Const: General: comfortable and no acute distress GI: Inspection: non-distended GI Palp: Yes Soft to palpation and Yes Tenderness to palpation present (GI) (Mostly to epigastric region.) Objective Data Vital Signs Vital Signs: Vital Signs - 24 hr 05/17/25 14:52 05/17/25 15:05 05/17/25 15:20 Temperature 98.0 F Pulse Rate 92 93 80 Respiratory Rate 14 20 16 Blood Pressure 114/63 126/73 115/65 Pulse Oximetry 100 100 100 Oxygen Delivery Simple Face Mask Simple Face Mask Room Air Oxygen Flow Rate 8 8 05/17/25 15:35 05/17/25 15:50 05/17/25 16:02 Temperature Pulse Rate 88 74 70 Respiratory Rate 16 20 20 Blood Pressure 111/70 104/60 107/64 Pulse Oximetry 100 100 100 Oxygen Delivery Room Air Room Air Room Air Oxygen Flow Rate 05/17/25 19:12 05/17/25 20:00 05/17/25 21:49 Temperature 98 F 98.1 F Pulse Rate 78 68 Respiratory Rate 18 18 Blood Pressure 126/57 L 120/69 Pulse Oximetry 100 100 Oxygen Delivery Room Air Oxygen Flow Rate 05/17/25 23:07 05/18/25 03:07 05/18/25 07:00 Temperature 98.2 F 98.7 F 98.6 F Pulse Rate 72 59 L 65 Respiratory Rate 18 18 20 Blood Pressure 121/72 109/55 L 108/70 Pulse Oximetry 100 100 98 Oxygen Delivery Oxygen Flow Rate 05/18/25 08:00 05/18/25 11:25 05/18/25 14:29 Temperature 97 F L Pulse Rate 76 Respiratory Rate 18 Blood Pressure 102/66 Pulse Oximetry 97 97 Oxygen Delivery Room Air Room Air Oxygen Flow Rate Intake/Output Intake/Output: Intake & Output 05/15/25 05/16/25 05/17/25 05/18/25 23:59 23:59 23:59 23:59 Intake Total 3375.4 2800 440 Balance 3375.4 2800 440 Meds/Results Medications: Active Medications Generic Name Dose Route Start Last Admin Trade Name Freq PRN Reason Stop Dose Admin Acetaminophen 1,000 mg 05/17/25 16:05 05/17/25 20:30 Acetaminophen 500 Mg Tablet PO 1,000 mg Q6H PRN Administration Mild Pain (1-3) or Fever Hydrocodone Bitart/Acetaminophen 1 tab 05/17/25 16:05 05/18/25 10:14 Hydrocodone/Acetaminophen (*Crx) 5-325 Mg Tablet PO 1 tab Q4H PRN Administration Pain Rated 4-6 Lactated Ringer's 1,000 mls @ 75 mls/hr 05/17/25 00:01 05/18/25 04:27 Lr - Lactated Ringers Iv IV CONT 75 mls/hr .[id number] WATSON Administration Morphine Sulfate 2 mg 05/16/25 05:58 05/18/25 05:49 Morphine Sulfate (*Crx) 4 Mg/Ml Inj IV PUSH 2 mg Q2H PRN Administration Pain Rated 7-10 Ondansetron HCl 4 mg 10/08/25 02:55 05/17/25 16:41 Ondansetron Inj 4 Mg/2 Ml Vial IV PUSH 4 mg Q4H PRN Administration Nausea Oxycodone HCl 5 mg 05/17/25 16:05 05/18/25 00:59 Oxycodone Hcl (*Crx) 5 Mg Tab Ir PO 5 mg Q6H PRN Administration Pain Rated 7-10 Radiology Results: ITS Impressions Abdomen/Pelvis CT 05/16/25 08:26 IMPRESSION: 1. No etiology for the patient's symptoms. MRCP 05/16/25 14:11 IMPRESSION: 1. Cholelithiasis within the normal gallbladder with no choledocholithiasis and no intra or extrahepatic biliary ductal dilation. Abdomen Ultrasound 05/16/25 16:34 IMPRESSION: 1. Cholelithiasis without evident acute cholecystitis or biliary ductal dilation. Labs Labs: Laboratory Results - last 24 hr 05/18/25 07:45 WBC 9.9 RBC 4.94 Hgb 13.7 Hct 40.8 MCV 82.6 MCH 27.7 MCHC 33.6 RDW 13.1 Plt Count 281 MPV 8.5 Sodium 134 L Potassium 4.1 Chloride 102 Carbon Dioxide 24 Anion Gap 8 BUN 4 L Creatinine 0.57 L Estim Creat Clear Calc 137 Estimated GFR > 60 Glucose 92 Calcium 9.3
--- NOTE | 2025-05-18 15:15 | P.PNIM_ITS ---
Progress Note: A&P Assessment and Plan (1) Cholelithiasis: Qualifiers: Biliary obstruction: without biliary obstruction Cholecystitis presence: without cholecystitis Cholelithiasis location: gallbladder Qualified Code(s): K80.20 - Calculus of gallbladder without cholecystitis without obstruction Code(s): K80.20 - Calculus of gallbladder without cholecystitis without obstruction Status: Acute (2) Elevated liver enzymes: Code(s): R74.8 - Abnormal levels of other serum enzymes Status: Acute Plan This is a pleasant 19-year-old female PMH nicotine vaping, class 1 obesity, who presents to [facility] on 05/16/2025 complaining of right upper quadrant pain with nausea vomiting for 1 day. She has had similar pain on a few occasions in the past few months, she last visited [place] and was discharged from the ER. She has not had any abdominal surgeries, her 1 was a vaginal delivery. She denies fever, chest pain, shortness of breath, bloody vomitus, diarrhea. Denies urinary frequency, dysuria, foul- smelling urine. WBC 22321, serum creatinine 0.58, total bilirubin 1.7, AST 207, ALT 102, lipase 86, urinalysis grossly abnormal with bacteria, WBC, leukocyte esterase, however contaminated. Patient received morphine 4 mg IV, ceftriaxone, 1 L normal saline bolus, Zofran 4 mg IV x1. She was resting comfortably thereafter. CT abdomen and pelvis with contrast demonstrates gallstones. ----- Pending MRCP for today. -gi is following NPO, IV fluids- Normal saline at 125 cc/hour. Zofran and morphine p.r.n.. She has no urinary symptoms, follow-up urine culture. Nicotine abuse counseling provided. Patient would like to be full code. SCDs. Normal saline. NPO. Admission to medical floor. 05/17- Recommend proceeding with laparoscopic cholecystectomy possible conversion open cholecystectomy during this admission. 05/18 continue popain meds, nausea meds as needed surgery following- post op day one trend labs tolerates diet Time Spent With Patient Time with patient: 25 - 35 minutes Subjective Date/time seen: 05/18/25 15:15 Interval history: ... 19-year-old female PMH nicotine vaping, class 1 obesity, who presents to [facility] on 05/16/2025 complaining of right upper quadrant pain with nausea vomiting for 1 day. She has had similar pain on a few occasions in the past few months, she last visited [place] and was discharged from the ER. She has not had any abdominal surgeries, her 1 was a vaginal delivery. She denies fever, chest pain, shortness of breath, bloody vomitus, diarrhea. Denies urinary frequency, dysuria, foul-smelling urine. WBC 81338, serum creatinine 0.58, total bilirubin 1.7, AST 207, ALT 102, lipase 86, urinalysis grossly abnormal with bacteria, WBC, leukocyte esterase, however contaminated. Patient received morphine 4 mg IV, ceftriaxone, 1 L normal saline bolus, Zofran 4 mg IV x1. She was resting comfortably thereafter. CT abdomen and pelvis with contrast demonstrates gallstones, official radiology interpretation is pending. Pt is seen and examined. surgery was consulted: Recommend proceeding with laparoscopic cholecystectomy possible conversion open cholecystectomy during this admission. pain is well controlled 05/18 abd pain in am, some nausea. Review of Systems Review of Systems: All systems reviewed & are unremarkable except as noted in HPI and below (Subjective) Exam Narrative: resting in bed Const: General: comfortable and no acute distress Other: A&O x3 Eyes: Pupils: Equal, round and reactive pupils present Neck: Neck: supple Resp: Effort & Inspection: normal respiratory effort Auscultation: clear to auscultation bilaterally Cardio: Rate: regular rate Rhythm: regular rhythm Heart sounds: no murmurs GI: Auscultation: normal bowel sounds Other: Right upper quadrant pain with positive Armas sign Neuro: Cranial nerves: Yes Equal, round and reactive pupils present Motor exam (neuro): 5/5 motor strength present throughout Extrem: General: no edema Objective Data Vital Signs Vital Signs: Vital Signs - 24 hr 05/17/25 15:20 05/17/25 15:35 05/17/25 15:50 Temperature Pulse Rate 80 88 74 Respiratory Rate 16 16 20 Blood Pressure 115/65 111/70 104/60 Pulse Oximetry 100 100 100 Oxygen Delivery Room Air Room Air Room Air 05/17/25 16:02 05/17/25 19:12 05/17/25 20:00 Temperature 98 F Pulse Rate 70 78 Respiratory Rate 20 18 Blood Pressure 107/64 126/57 L Pulse Oximetry 100 100 Oxygen Delivery Room Air Room Air 05/17/25 21:49 05/17/25 23:07 05/18/25 03:07 Temperature 98.1 F 98.2 F 98.7 F Pulse Rate 68 72 59 L Respiratory Rate 18 18 18 Blood Pressure 120/69 121/72 109/55 L Pulse Oximetry 100 100 100 Oxygen Delivery 05/18/25 07:00 05/18/25 08:00 05/18/25 11:25 Temperature 98.6 F Pulse Rate 65 Respiratory Rate 20 Blood Pressure 108/70 Pulse Oximetry 98 97 Oxygen Delivery Room Air Room Air 05/18/25 14:29 Temperature 97 F L Pulse Rate 76 Respiratory Rate 18 Blood Pressure 102/66 Pulse Oximetry 97 Oxygen Delivery Intake/Output Intake/Output: Intake & Output 05/15/25 05/16/25 05/17/25 05/18/25 23:59 23:59 23:59 23:59 Intake Total 3375.4 2800 440 Balance 3375.4 2800 440 Meds/Results Medications: Active Medications Generic Name Dose Route Start Last Admin Trade Name Freq PRN Reason Stop Dose Admin Acetaminophen 1,000 mg 05/17/25 16:05 05/17/25 20:30 Acetaminophen 500 Mg Tablet PO 1,000 mg Q6H PRN Administration Mild Pain (1-3) or Fever Hydrocodone Bitart/Acetaminophen 1 tab 05/17/25 16:05 05/18/25 14:40 Hydrocodone/Acetaminophen (*Crx) 5-325 Mg Tablet PO 1 tab Q4H PRN Administration Pain Rated 4-6 Lactated Ringer's 1,000 mls @ 75 mls/hr 05/17/25 00:01 05/18/25 04:27 Lr - Lactated Ringers Iv IV CONT 75 mls/hr .[id number] WATSON Administration Morphine Sulfate 2 mg 05/16/25 05:58 05/18/25 05:49 Morphine Sulfate (*Crx) 4 Mg/Ml Inj IV PUSH 2 mg Q2H PRN Administration Pain Rated 7-10 Ondansetron HCl 4 mg 05/16/25 02:55 05/17/25 16:41 Ondansetron Inj 4 Mg/2 Ml Vial IV PUSH 4 mg Q4H PRN Administration Nausea Radiology Results: ITS Impressions Abdomen/Pelvis CT 05/16/25 08:26 IMPRESSION: 1. No etiology for the patient's symptoms. MRCP 05/16/25 14:11 IMPRESSION: 1. Cholelithiasis within the normal gallbladder with no choledocholithiasis and no intra or extrahepatic biliary ductal dilation. Abdomen Ultrasound 05/16/25 16:34 IMPRESSION: 1. Cholelithiasis without evident acute cholecystitis or biliary ductal dilation. Labs Labs: Laboratory Results - last 24 hr 05/18/25 07:45 WBC 9.9 RBC 4.94 Hgb 13.7 Hct 40.8 MCV 82.6 MCH 27.7 MCHC 33.6 RDW 13.1 Plt Count 281 MPV 8.5 Sodium 134 L Potassium 4.1 Chloride 102 Carbon Dioxide 24 Anion Gap 8 BUN 4 L Creatinine 0.57 L Estim Creat Clear Calc 137 Estimated GFR > 60 Glucose 92 Calcium 9.3
[2025-05-18 16:52] LABS: Alanine Aminotransferase 99 U/L (6-35); Albumin Level 3.6 g/dL (3.5-5.1); Alkaline Phosphatase 82 U/L (38-126); Aspartate Amino Transferase 57 U/L (14-36); Bilirubin,Total 0.6 mg/dL (0.2-1.3); Total Protein 6.4 g/dL (6.3-8.2)
[2025-05-18 19:05] VITALS: BP 110/69
[2025-05-18 20:35] VITALS: BP 105/60; PULSE 83; RESP 16; TEMP 35.7; O2SAT 98
[2025-05-18] MEDS: ACETAMINOPHEN 500 MG TABLET 1000 MG PO (22:06)
[2025-05-19] MEDS: HYDROcodone/acetaminophen (*CRX) 5-325 MG TABLET 1 TAB PO ×3 (00:35→15:31)
[2025-05-19 05:33] VITALS: BP 101/55; PULSE 75; RESP 16; TEMP 36.5; O2SAT 99
[2025-05-19 06:23] LABS: Hematocrit 39.3 % (37.0-47.0); Hemoglobin 12.8 g/dL (12.0-15.0); Mean Corpuscular HGB Conc 32.6 g/dl (32-36); Mean Corpuscular Hemoglobin 27.6 pg (26-34); Mean Corpuscular Volume 84.7 fl (80-100); Platelet Count Result 255 k/mm3 (150-375); Red Blood Count 4.64 M/mm3 (4.2-5.4); White Blood Count 7.6 K/mm3 (4.5-10.0)
[2025-05-19 06:53] LABS: Anion Gap 5 mmol/L (4-12); Blood Urea Nitrogen 9 mg/dL (7-17); Calcium 8.7 mg/dL (8.4-10.2); Carbon Dioxide 28 mmol/L (22-30); Chloride 102 mmol/L (98-107); Estimated CRCL calculation 126 ml/min; Estimated Glomerular Filt Rate > 60; Glucose 84 mg/dL (65-110); Potassium 3.7 mmol/L (3.4-5.0); Sodium 135 mmol/L (137-145)
[2025-05-19] MEDS: LACTATED RINGERS 1,000 ML 75 ML IV CONT (10:50)
--- NOTE | 2025-05-19 13:47 | P.DS_ITS ---
DS: Admitting Diagnosis Discharge Date 05/19 Admitting Diagnosis abd pain DS: Discharge Diagnosis Discharge Diagnosis (1) Cholelithiasis: Qualifiers: Biliary obstruction: without biliary obstruction Cholecystitis presence: without cholecystitis Cholelithiasis location: gallbladder Qualified Code(s): K80.20 - Calculus of gallbladder without cholecystitis without obstruction Code(s): K80.20 - Calculus of gallbladder without cholecystitis without obstruction Status: Acute (2) Elevated liver enzymes: Code(s): R74.8 - Abnormal levels of other serum enzymes Status: Acute DS: Summary Hospital Course Hospital Course: This is a pleasant 19-year-old female PMH nicotine vaping, class 1 obesity, who presents to [facility] on 05/16/2025 complaining of right upper quadrant pain with nausea vomiting for 1 day. She has had similar pain on a few occasions in the past few months, she last visited [place] and was discharged from the ER. She has not had any abdominal surgeries, her 1 pregn mary was a vaginal delivery. She denies fever, chest pain, shortness of breath, bloody vomitus, diarrhea. Denies urinary frequency, dysuria, foul-smelling urine. WBC 89832, serum creatinine 0.58, total bilirubin 1.7, AST 207, ALT 102, lipase 86, urinalysis grossly abnormal with bacteria, WBC, leukocyte esterase, however contaminated. Patient received morphine 4 mg IV, ceftriaxone, 1 L normal saline bolus, Zofran 4 mg IV x1. She was resting comfortably thereafter. CT abdomen and pelvis with contrast demonstrates gallstones. # cholelithiasis Pod 1 status post laparoscopic cholecystectomy. Patient tolerated the procedure well. She does still complain of some epigastric pain that radiates to her back. Getting [place] and morphine for pain. She states that this sometimes helps but only for a small period of time. Pain is directly over where 1 of her incisions is. Pain is exacerbated by movement. Voiding appropriately and ambulating without assistance. She was able to eat a few bites of a hamburger for lunch. * Once patient is able to eat a bit more and tolerate pain with oral medication only, then she is stable for discharge. She will follow up with Dr. Varner in the office in 2 weeks. Status at Discharge Functional status at discharge: independent ambulation Overall status at discharge: patient is progressing back to baseline Time Spent with Patient Time attestation: Total time spent providing and/or coordinating discharge services: Exam Narrative: resting in bed Const: General: comfortable and no acute distress Other: A&O x3 Eyes: Pupils: Equal, round and reactive pupils present Neck: Neck: supple Resp: Effort & Inspection: normal respiratory effort Auscultation: clear to auscultation bilaterally Cardio: Rate: regular rate Rhythm: regular rhythm Heart sounds: no murmurs GI: Auscultation: normal bowel sounds Other: Right upper quadrant pain with positive Armas sign Neuro: Cranial nerves: Yes Equal, round and reactive pupils present Motor exam (neuro): 5/5 motor strength present throughout Extrem: General: no edema DS: Data Data Completed and Pending Pending studies at discharge: Pending at discharge 05/17/25 14:56 Surgical [PTH] Routine Labs on day of discharge: Labs from last 24 hours 05/19/25 05/18/25 05:44 16:27 WBC 7.6 RBC 4.64 Hgb 12.8 Hct 39.3 MCV 84.7 MCH 27.6 MCHC 32.6 RDW 13.4 Plt Count 255 MPV 8.5 Sodium 135 L Potassium 3.7 Chloride 102 Carbon Dioxide 28 Anion Gap 5 BUN 9 D Creatinine 0.63 L Estim Creat Clear Calc 126 Estimated GFR > 60 Glucose 84 Calcium 8.7 Total Bilirubin 0.6 Direct Bilirubin 0.0 AST 57 H ALT 99 H Alkaline Phosphatase 82 Total Protein 6.4 Albumin 3.6 Preliminary micro results at discharge 05/16/25 03:23 Blood Culture - Preliminary Blood 05/16/25 03:25 Blood Culture - Preliminary Blood Discharge Plan Discharge Attending physician on discharge: Chelsi Phillip Consulting providers: José Miguel Singh; Jonathan Varner Discharging Clinician: Marily Moody Patient Disposition: Home Activity: may shower Diet: low fat Discharge Instructions: Please follow low fat diet. see DR Varner in 2 weeks. NO heavy lifting Follow instructions provided to you from surgery. Patient Instructions: Laparoscopic Cholecystectomy, Antibiotic Form Patient Language: Divehi Stand Alone Forms: General Discharge Information Follow-up/Referrals: PHYSICIAN,RESTAURANT LINE COOK [Primary Care Provider, Internal Medicine] - 2 Weeks Jonathan Varner MD [Physician, General Surgery] - 2 Weeks Discharge Medications: New hydrocodone-acetaminophen 5-325 mg Tablet 1 tablet PO Q4H PRN (Reason: Pain Rated 4-6) Qty: 12 0RF ondansetron 4 mg tablet,disintegrating 4 mg PO Q8H PRN (Reason: nausea and vomiting) Qty: 14 0RF Continued ibuprofen 600 mg Tablet 600 mg PO Q6H PRN (Reason: Cramping) Qty: 30 0RF Date of admission: 05/16/25 02:55 Primary Care Provider: PHYSICIAN,RESTAURANT LINE COOK Admitting Provider: Kimberlyn Cobb Attending physician on admission: Kimberlyn Cobb Condition: Stable Hospitalist MIPS Heart Failure (Exclusion) Patient has history of Heart Transplant or Left Ventricular Assistive Device?: No IF YES, STOP HERE Heart Failure (Qualifier) Patient has current or prior documentation of LVEF less than or equal to 40%, or mod/servere depressed LVSF?: No IF NO, STOP HERE
[2025-05-19 14:00] VITALS: BP 105/64; PULSE 87; RESP 16; TEMP 36.6; O2SAT 98
--- NOTE | 2025-05-19 15:16 | P.PNGS_ITS ---
Progress Note: A&P Assessment and Plan (1) Cholelithiasis: Qualifiers: Biliary obstruction: without biliary obstruction Cholecystitis presence: without cholecystitis Cholelithiasis location: gallbladder Qualified Code(s): K80.20 - Calculus of gallbladder without cholecystitis without obstruction Code(s): K80.20 - Calculus of gallbladder without cholecystitis without obstruction Status: Acute Assessment and Plan: * Doing well on POD#2. OK to discharge from surgical standpoint. Discharge instructions discussed with patient. * F/u with Dr. Varner in 2 weeks. Subjective Subjective Date/Time Seen: 05/19/25 15:16 Interval history: Tolerating diet. Pain control improving. No fevers. Exam GI: Inspection: non-distended and incision (intact with glue) GI Palp: Yes Soft to palpation, Yes Tenderness to palpation present (GI) (incisional) and No Guarding due to palpation present (GI) Objective Data Vital Signs Vital Signs: Vital Signs - 24 hr 05/18/25 19:05 05/18/25 20:00 05/18/25 20:35 Temperature 96.3 F L Pulse Rate 83 Respiratory Rate 16 Blood Pressure 110/69 105/60 Pulse Oximetry 98 Oxygen Delivery Room Air 05/19/25 05:33 05/19/25 14:00 Temperature 97.7 F 97.8 F Pulse Rate 75 87 Respiratory Rate 16 16 Blood Pressure 101/55 L 105/64 Pulse Oximetry 99 98 Oxygen Delivery Intake/Output Intake/Output: Intake & Output 05/16/25 05/17/25 05/18/25 05/19/25 23:59 23:59 23:59 23:59 Intake Total 3375.4 2800 1681.3 1610 Balance 3375.4 2800 1681.3 1610 Meds/Results Medications: Active Medications Generic Name Dose Route Start Last Admin Trade Name Freq PRN Reason Stop Dose Admin Acetaminophen 1,000 mg 05/17/25 16:05 05/18/25 22:06 Acetaminophen 500 Mg Tablet PO 1,000 mg Q6H PRN Administration Mild Pain (1-3) or Fever Hydrocodone Bitart/Acetaminophen 1 tab 05/17/25 16:05 05/19/25 06:26 Hydrocodone/Acetaminophen (*Crx) 5-325 Mg Tablet PO 1 tab Q4H PRN Administration Pain Rated 4-6 Lactated Ringer's 1,000 mls @ 75 mls/hr 05/17/25 00:01 05/19/25 10:50 Lr - Lactated Ringers Iv IV CONT 75 mls/hr .[id number] WATSON Administration Morphine Sulfate 2 mg 05/16/25 05:58 05/18/25 05:49 Morphine Sulfate (*Crx) 4 Mg/Ml Inj IV PUSH 2 mg Q2H PRN Administration Pain Rated 7-10 Ondansetron HCl 4 mg 05/16/25 02:55 05/17/25 16:41 Ondansetron Inj 4 Mg/2 Ml Vial IV PUSH 4 mg Q4H PRN Administration Nausea Radiology Results: ITS Impressions Abdomen/Pelvis CT 05/16/25 08:26 IMPRESSION: 1. No etiology for the patient's symptoms. MRCP 05/16/25 14:11 IMPRESSION: 1. Cholelithiasis within the normal gallbladder with no choledocholithiasis and no intra or extrahepatic biliary ductal dilation. Abdomen Ultrasound 05/16/25 16:34 IMPRESSION: 1. Cholelithiasis without evident acute cholecystitis or biliary ductal dilation. Labs Labs: Laboratory Results - last 24 hr 05/18/25 05/19/25 16:27 05:44 WBC 7.6 RBC 4.64 Hgb 12.8 Hct 39.3 MCV 84.7 MCH 27.6 MCHC 32.6 RDW 13.4 Plt Count 255 MPV 8.5 Sodium 135 L Potassium 3.7 Chloride 102 Carbon Dioxide 28 Anion Gap 5 BUN 9 D Creatinine 0.63 L Estim Creat Clear Calc 126 Estimated GFR > 60 Glucose 84 Calcium 8.7 Total Bilirubin 0.6 Direct Bilirubin 0.0 AST 57 H ALT 99 H Alkaline Phosphatase 82 Total Protein 6.4 Albumin 3.6
== END 2025-05-19 17:09 | disposition home or self-care (01) ==
LOC: ANHED 03:00 → ANH3MEDSUR 05-17 07:17
PROVIDERS: Nurse Practitioner; Surgery; Admitting Provider General Practice; Emergency Provider Emergency Medicine; Visit Provider Student in an Organized Health Care Education/Training Program
PROC: 0FT44ZZ Resection of Gallbladder, Percutaneous Endoscopic Approach (ICD-10-PCS; CPT 47562; principal; 2025-05-17 13:30)
DX: K80.00 Calculus of gallbladder with acute cholecystitis without obstruction (principal); R74.8 Abnormal levels of other serum enzymes; E66.9 Obesity, unspecified; E66.811 Obesity, class 1; Z68.33 Body mass index [BMI] 33.0-33.9, adult; F41.9 Anxiety disorder, unspecified; Z79.1 Long term (current) use of non-steroidal anti-inflammatories (NSAID); Z87.891 Personal history of nicotine dependence; Z90.49 Acquired absence of other specified parts of digestive tract; Z80.3 Family history of malignant neoplasm of breast; Z83.3 Family history of diabetes mellitus; Z81.8 Family history of other mental and behavioral disorders; Z83.49 Family history of other endocrine, nutritional and metabolic diseases
CPT/HCPCS: 47562; 36415; 74177; 74183; 76376; 76705; 80048; 80053; 80076; 81001; 81025; 83690; 85025; 85027; 87040; 88304; 96361; 96365; 96367; 96375; 99285; A9270; A9577; G0378; G0379; J0696; J1100; J1885; J2004; J2250; J2270; J2405; J2543; J2704; J3010; J7030; J7120; Q9967

== ENCOUNTER 2025-05-22 09:35 | Emergency (ER) | payer OTHER, SELFPAY ==
[2025-05-22 09:38] VITALS: BP 125/66; PULSE 87; RESP 16; TEMP 37; O2SAT 100
--- OUTSIDE RECORDS SUMMARY | 2025-05-22 10:45 | XMS_ITS | Clinical Summary ---
Author Organization [facility] Address [address] [place] [address] Care Team Providers Care Laborer/Grade Check Name Role Phone Unavailable Primary Care Provider Unavailabl e Source Comments [facility],non-owned Affiliates and Associated Physician Practices is amultiple site organization consisting of ambulatory clinics and hospital sitesin [place], [place], [place] and [place]. This disclosure is being madepursuant to the Care Everywhere program and may not contain all information available regarding this patient. 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
--- NOTE | 2025-05-22 11:49 | PC.NURSE ---
Patient complaining of intermittent lightheadedness and dizziness since Wednesday including now
[2025-05-22 11:53] VITALS: BP 116/73; PULSE 88; RESP 16; O2SAT 100
--- NOTE | 2025-05-22 13:09 | ED_ITS ---
HPI - Recheck/Abnormal Lab/Rx General Chief Complaint: Recheck/Abnormal Lab/Rx Stated Complaint: post op comp Time Seen by Provider: 05/22/25 12:05 History of Present Illness HPI narrative: 19-year-old otherwise healthy female presenting to the emergency department for evaluation after gallbladder surgery last . She states she has been doing well postoperatively and been taking her [place] and Tylenol at home for pain control. This morning her mom knows that she had some mild purulent looking drainage over her epigastric port site incision. No continued oozing or large volume of fluid. No bleeding. Mild pain but states that that is been there since the procedure. No worsening pain. Denies any fever, chills, night sweats. Has a good appetite, denies any other recent health concerns. No traumatic injuries. Related Data Allergies Allergy/AdvReac Type Severity Reaction Status Date / Time No Known Allergies Allergy Verified 05/16/25 00:13 Review of Systems 2 Review of Systems: As reviewed above in HPI PMFSH Past Medical History Medical History Anxiety Family History Family History Grandparent Breast cancer Diabetes mellitus Thyroid disorder Mother Diabetes mellitus Depression with anxiety Sibling Depression with anxiety Social History Social History Smoking status: Never smoker Tobacco type: e-cigarettes/vaping Second hand tobacco smoke exposure: No Smoking end date: 04/09/23 Alcohol intake: never Substance use: never Substance use type: does not use Do You Feel Safe in your Home?: Yes Lack of Transportation: No Lack of Food: Never True Current Housing: I Have Housing Concerned About Future Housing: No Difficulty Paying Gas/Electric Bills: No Difficulty Paying for Meds: No Currently Unemployed: No Education: High School Diploma/GED Difficulty w/ Childcare or Family Care: No Spiritual care concerns: No Exam 2 Narrative: GENERAL: [Well-appearing, well-nourished, and in no acute distress.] HEAD: [Normocephalic, atraumatic.] EYES: [PERRLA and EOMI.] ENT: Nares clear, no rhinorrhea or epistaxis. Mucous membranes moist. NECK: Supple. CHEST: [Clear to auscultation. No respiratory distress.] HEART: [Regular rate and rhythm]. No murmur heard. [Normal peripheral pulses.] ABDOMEN: Soft and nondistended, minimally tender near her incisional sites. Total 5 incision sites appear clean dry and intact without any purulent drainage, minimal erythema over the epigastric ill incision site but no streaking redness or induration. EXTREMITIES: Normal range of motion. [No edema.] SKIN: Warm, dry, no rash. NEURO: [No focal deficits]. Alert and oriented [x3.] PSYCH: [Normal mood and affect.] Course Vital Signs Vital signs: Vital Signs Temperature 37.0 C 05/22/25 09:38 Pulse Rate 87 05/22/25 09:38 Respiratory Rate 16 05/22/25 09:38 Blood Pressure 125/66 05/22/25 09:38 Pulse Oximetry 100 05/22/25 09:38 Temperature 36.6 C 05/22/25 15:08 Pulse Rate 78 05/22/25 15:08 Respiratory Rate 14 05/22/25 15:08 Blood Pressure 99/62 L 05/22/25 15:08 Pulse Oximetry 98 05/22/25 15:08 MDM - Recheck/Abnormal Lab/Rx MDM Narrative Medical decision making narrative: 19-year-old otherwise healthy female presenting to the emergency department for evaluation after gallbladder surgery last . She states she has been doing well postoperatively and been taking her [place] and Tylenol at home for pain control. This morning her mom knows that she had some mild purulent looking drainage over her epigastric port site incision. No continued oozing or large volume of fluid. No bleeding. Mild pain but states that that is been there since the procedure. No worsening pain. Denies any fever, chills, night sweats. Has a good appetite, denies any other recent health concerns. No traumatic injuries. Patient examination is reassuring. She is afebrile. No tachycardia, fever, hypoxemia blood pressure anomalies. Normal pulse ox. Examination shows a soft and nondistended, minimally tender near her incisional sites. Total 5 incision sites appear clean dry and intact without any purulent drainage, minimal erythema over the epigastric ill incision site but no streaking redness or induration. Patient likely has some normal serosanguineous discharge from her incision sites as that is no convincing evidence for active infection at this time. No distension, fever tachycardia. Do not suspect intra-abdominal abscess formation or postop surgical complication at this juncture. Will obtain basic laboratory studies including CBC and lactic acid to evaluate for infections. test ordered. Patient given fluids here. Laboratory studies are reassuring. No leukocytosis or anemia. Normal lactic acid level. Normal electrolyte panel. Normal creatinine. Normal glucose. LFTs down trending. Negative lipase and beta hCG level. Patient re-evaluated and doing well. No further infection concerns at this time, safe for discharge home with regular follow-up with her providers. Given return precautions and patient verbalized understanding. Medical Records Attestation: I reviewed the patient's medical records. Lab Data Attestation: I reviewed the patient's lab results. 05/22/25 13:16 05/22/25 13:16 Labs: Lab Results 05/22/25 05/22/25 05/22/25 Range/Units 13:08 13:16 13:17 WBC 7.8 (4.5-10.0) K/mm3 RBC 5.42 H (4.2-5.4) M/mm3 Hgb 14.7 (12.0-15.0) g/dL Hct 44.9 (37.0-47.0) % MCV 82.8 (80-100) fl MCH 27.1 (26-34) pg MCHC 32.7 (32-36) g/dl RDW 13.2 (11.5-14.5) % Plt Count 294 (150-375) k/mm3 MPV 8.3 (7.4-10.4) fl Immature Gran % (Auto) 0.1 (0-0.5) % Neut % (Auto) 63.8 (45.5-73.1) % Lymph % (Auto) 29.0 (18.3-44.2) % [place] % (Auto) 5.3 (2.6-8.5) % Eos % (Auto) 1.5 (0-4.4) % Baso % (Auto) 0.3 (0.2-1.2) % Lymph # (Auto) 2.26 (0.9-3.2) K/mm3 [place] # (Auto) 0.4 (0.1-0.6) K/mm3 Eos # (Auto) 0.1 (0-0.3) K/mm3 Baso # (Auto) 0.0 (0.0-0.1) K/mm3 Abs Immat Gran (auto) 0.01 (0.00-0.031) K/mm3 Absolute Neuts (auto) 5.0 (1.3-6.7) K/mm3 Absolute Nucleated RBC 0.000 (0.0-0.012) K/mm3 Nucleated RBC % 0.0 (0.0-0.2) % Sodium 137 (137-145) mmol/L Potassium 4.0 (3.4-5.0) mmol/L Chloride 102 (98-107) mmol/L Carbon Dioxide 26 (22-30) mmol/L Anion Gap 9 (4-12) mmol/L BUN 14 D (7-17) mg/dL Creatinine 0.60 L (0.7-1.0) mg/dL Estim Creat Clear Calc 125 ml/min Estimated GFR > 60 (59 - ) Glucose 82 (65-110) mg/dL Lactic Acid 0.7 (0.7-2.0) mmol/L Calcium 9.3 (8.4-10.2) mg/dL Magnesium 2.1 2.2 (1.6-2.3) mg/dL Total Bilirubin 0.7 (0.2-1.3) mg/dL AST 35 (14-36) U/L ALT 47 H (6-35) U/L Alkaline Phosphatase 86 (38-126) U/L Total Protein 8.1 (6.3-8.2) g/dL Albumin 4.5 (3.5-5.1) g/dL Lipase 57 (23-300) U/L Beta HCG, Quant < 2.39 mIU/ML Urine Color Yellow (Yellow) Urine Appearance Cloudy H (Clear) Urine pH 5.5 (5.0-9.0) Ur Specific [place] 1.027 (1.001-1.035) Urine Protein Trace (Negative) mg/dL Urine Glucose (UA) Negative (Negative) mg/dL Urine Ketones Trace H (Negative) mg/dL Ur Blood (Man) 3+ H (Negative) Urine Nitrate Negative (Negative) Urine Bilirubin Negative (Negative) Urine Urobilinogen 1.0 (<2.0) mg/dL Leukocyte Esterase Rfl Trace H (Negative) ELIZABETH/UL Urine RBC 3-5 H (0-2) /hpf Urine WBC 0-5 (0-3) /hpf Ur Squamous Epith Cells Moderate (Few) /hpf Urine Bacteria Rare /hpf Urine Casts 0-2 Discharge Plan Discharge Clinical Impression: Encounter for post surgical wound check, Surgical wound present Patient Disposition: Home Condition: Stable Instructions: Antibiotic Form Additional Instructions: All of your laboratory studies are reassuring. No signs of infection. If you start noticing worsening pain or worsening drainage, thick sticky purulent looking drainage, fevers or developing nausea vomiting or abdominal discomfort please return to the ER otherwise follow-up with your regular primary care provider in general surgeon for regular postoperative checkup. Patient Language: Syrian Prescriptions: No Action hydrocodone-acetaminophen 5-325 mg Tablet 1 tablet PO Q4H PRN (Reason: Pain Rated 4-6) Qty: 12 0RF ondansetron 4 mg tablet,disintegrating 4 mg PO Q8H PRN (Reason: nausea and vomiting) Qty: 14 0RF ibuprofen 600 mg Tablet 600 mg PO Q6H PRN (Reason: Cramping) Qty: 30 0RF Follow-up/Referrals: PHYSICIAN,PORTABLE FEED MILL OPERATOR [Primary Care Provider, Internal Medicine] Time of Disposition: 14:56
[2025-05-22 13:28] LABS: Hematocrit 44.9 % (37.0-47.0); Hemoglobin 14.7 g/dL (12.0-15.0); Immature Granulocyte Percent A 0.1 % (0-0.5); Lymphocytes Absolute Auto 2.26 K/mm3 (0.9-3.2); Mean Corpuscular HGB Conc 32.7 g/dl (32-36); Mean Corpuscular Hemoglobin 27.1 pg (26-34); Mean Corpuscular Volume 82.8 fl (80-100); Nucleated Red Blood Cells Absolute Auto 0.000 K/mm3 (0.0-0.012); Nucleated Red Blood Cells Perc 0.0 % (0.0-0.2); Platelet Count Result 294 k/mm3 (150-375); Red Blood Count 5.42 M/mm3 (4.2-5.4); White Blood Count 7.8 K/mm3 (4.5-10.0)
[2025-05-22 13:35] LABS: Add Urine Microscopic? YES; Appearance Urine Cloudy (Clear); Glucose Urine UA Negative (Negative); Leukocyte Esterase Ur Trace LEU/UL (Negative); Nitrate Urine Negative (Negative); Non Pathogenic Casts 0-2; Specific Grav Ur 1.027 (1.001-1.035)
[2025-05-22 13:53] LABS: Alanine Aminotransferase 47 U/L (6-35); Albumin Level 4.5 g/dL (3.5-5.1); Alkaline Phosphatase 86 U/L (38-126); Anion Gap 9 mmol/L (4-12); Aspartate Amino Transferase 35 U/L (14-36); Bilirubin,Total 0.7 mg/dL (0.2-1.3); Blood Urea Nitrogen 14 mg/dL (7-17); Calcium 9.3 mg/dL (8.4-10.2); Carbon Dioxide 26 mmol/L (22-30); Chloride 102 mmol/L (98-107); Estimated CRCL calculation 125 ml/min; Estimated Glomerular Filt Rate > 60; Glucose 82 mg/dL (65-110); Lipase 57 U/L (23-300); Magnesium 2.1 mg/dL (1.6-2.3); Potassium 4.0 mmol/L (3.4-5.0); Sodium 137 mmol/L (137-145); Total Protein 8.1 g/dL (6.3-8.2)
[2025-05-22 14:05] LABS: Beta HCG Quantitative < 2.39 mIU/ML
--- OUTSIDE RECORDS SUMMARY | 2025-05-22 14:05 | XMS_ITS | Clinical Summary ---
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 This disclosure is being madepursuant to the Care Everywhere program and may not contain all information available regarding this patient. Last updated 18.[facility] [employer] Allergies No known active allergies Medications * [...] on file Legal Sex Female 3:25 PM LICENSED STAFF MFT Gender Identity Not on file Sexual Orientation [...] Insurance [place] [facility] MEDICAID - OUT [place] [address] [place] [address] MEDICAID - OUT OF [facility], [facility] Advance Directives * Full Code (Latest Code Status on File) Date Activated Date Inactivated Comments 11/25/2017 3:00 PM 11/27/2017 11:43 AM
--- OUTSIDE RECORDS SUMMARY | 2025-05-22 14:05 | XMS_ITS | Data Portability ---
Author Organization [facility] [place] Address [address] [place] [address] [place] [address] Assessment Encounter Date Assessment Date Assessment LastModified by Organization Details LastModified Time 04/28/2024 04/28/2024 Patient is _40__weeks . Discussed plan. Not available 04/28/2024 16:48:58 Plan of Treatment Reminders Order Date Submit Date Provider Last Modified By Organization Details Last Modified Time Details Appointments None recorded. Lab test, urine 2023 024 [address], [address], [place], [address], 11:45:24 Referral None recorded. Procedures None recorded. Surgeries None recorded. Imaging non-stress test 2023 024 [email or web address] [place], [address], [place], [address], 07:50:13 US, obstetric, biophysical profile + non-stress test 2023 024 [email or web address] 4 [place], [address], [place], [address], 16:29:38 Medication Orders Nexplanon 68 mg subdermal implant 2023 024 [email or web address] Not available 12:14:04 Patient TargetsNo targets recorded. Patient InstructionsNo instructions recorded. Reason for Referral None Reported. Results Created Date Observation Date Name Description Value Unit Range Abnormal Flag Note LastModifiedBy Organization Detail LastModifiedTime 03/31/20 24 03/31/2024 CULTU RE: GROUP B STREP SCREE N, REFLE X SUSCE PTIBI LITY result report SEE RESULT S BELOW Test: Cultu re: Group B Strep , Refle x Susce ptibi lity ([facility]/ [facility] ) Speci men Sourc e: Vagin a/Rec jennifer Speci men Type: Vagin al/Re ctal Speci men Date: 2023 1545 Resul t Date: 2023 1519 Resul t Statu s: Final resul t Abnor mal: No Resul ting Lab: [facility] [address] [facility] [address] Tel: [phone] CULTU RE ----- ----- ----- --- No Group B strep isola rafael at 2 days (lisset ctive broth enhan cemen t) Not Available [facility] (Lab) [address] [facility], [place], [address], 04/03/2024 16:21:50 06/07/20 24 06/07/2024 pregn mary test, urine HCG negati ve Not Available [place] [address], [place], [address], 06/07/2024 11:45:15 03/30/20 24 03/30/2024 , obste tric, follo w-up No observ ation record ed. [facility] [address], [place], [address], 03/30/2024 16:29:42 03/30/20 24 03/30/2024 US, obste tric, follo w-up No observ ation record ed. ELLEN Chau [address], [place], [address], 03/31/2024 13:02:31 04/14/20 24 04/14/2024 non-s tress test No observ ation record ed. [email or web address] [place] [address], [place], [address], 04/14/2024 15:03:03 04/27/20 24 04/27/2024 non-s tress test No observ ation record ed. [place] [address], [place], [address], 04/28/2024 12:01:40 04/28/20 24 04/28/2024 US, obste tric, bioph ysica l profi le + non-s tress test No observ ation record ed. [email or web address] [place] [address], [place], [address], 04/28/2024 17:28:21 04/28/20 24 04/28/2024 US, obste tric, bioph ysica l profi le + non-s tress test No observ ation record ed. [email or web address] [address] [address], [place], [address], 04/28/2024 21:08:14 04/28/20 24 04/28/2024 non-s tress test No observ ation record ed. [email or web address] [place] [address], [place], [address], 04/28/2024 16:21:17 Result Notes None recorded. Problems Name Problem SNOMED Code Status Onset Date Resolution Date Notes Provider Name and Address Organization Details Recorded Time Anemia 022491976 Completed HGB 8.0 - per Dr. Fields needs IV iron. Order sent for IV iron infusions 02/28/24! Arleth em [facility] 17:53:56 Pregnanc y 94401312 Completed 202305/01/2024 Xochitl em [facility] 12:39:33 Problem Notes None recorded. Procedures Surgical History Date Name Laterality Status Provider Name and Address Organization Details Recorded Time 06/07/20 24 MM Nexplanon insert completed Rafa Fields MD [address], [place], [address], [place] [facility] 06/07/2024 15:53:46 08/09/19 16 Appendectomy completed Elsy Aguilar [facility] 02/24/2024 12:19:31 Imaging Results None recorded. Procedure Notes None recorded. Medical Equipment None Reported. Allergies No known drug allergies Medications Name Sig Start Date Stop Date Status Note LastModified by Organization Details LastModified Time sulfamethox azole 800 mg-trimetho prim 160 mg tablet TAKE 1 TABLET BY MOUTH TWICE DAILY 02/23 completed Not Available Not Available Not Available dextroamphe tamine-amph etamine ER 20 mg 24hr capsule,ext end release TAKE 1 CAPSULE BY MOUTH IN THE MORNING 02/23 completed Not Available Not Available Not Available phenazopyri dine 100 mg tablet TAKE 2 TABLETS BY MOUTH THREE TIMES DAILY FOR 2 DAYS 02/23 completed Not Available Not Available Not Available mirtazapine 15 mg tablet TAKE 1 TABLET BY MOUTH AT BEDTIME 02/23 completed Not Available Not Available Not Available escitalopra m 20 mg tablet TAKE 1 TABLET BY MOUTH DAILY 02/23 completed Not Available Not Available Not Available aripiprazol e 15 mg tablet TAKE 1/2 TABLET BY MOUTH DAILY 02/23 completed Not Available Not Available Not Available cyclobenzap rine 5 mg tablet TAKE 1 TABLET BY MOUTH THREE TIMES DAILY NEEDED FOR MUSCLE SPASM 05/31 completed Not Available Not Available Not Available 05/31 completed Not Available Not Available Not Available Nexplanon 68 mg subdermal implant Inject 1 implant by subcutane ous route. 2023 active Not Available Not Available Not Avai lable Fioricet 50 mg-300 mg-40 mg capsule Take 1 capsule every 4 hours by oral route. 05/31 completed Not Available Not Available Not Available Vitals Date Recorded Body weight Systolic And Diastolic Provider Name and Address Organization Details Last Updated DateTime 04/28/2024 14677.34901 g 120/76 mm[Hg] Darya Echevarria [facility] 04/28/2024 16:23:05 Date Recorded Body height Body mass index (BMI) Body mass index (BMI) [Percentile] Per age and sex Body weight Systolic And Diastolic Provider Name and Address Organization Details Last Updated DateTime 05/31/2024 160.02 cm 28.3 kg/m2 90 % 17279.7 8 g 118/72 mm[Hg] Darya Echevarria [facility] 14:22:58 Date Recorded Body height Body mass index (BMI) Body mass index (BMI) [Percentile] Per age and sex Body weight Systolic And Diastolic Provider Name and Address Organization Details Last Updated DateTime 06/07/2024 160.02 cm 28.7 kg/m2 91 % 33061.9 6 g 107/71 mm[Hg] Elsy Aguilar [facility] 11:34:32 Social History Question Answer Notes LastModified by Organizat ion Details LastModified Time Tobacco Smoking Status Never Smoker Elsy Aguilar [facility] 02/24/2024 12:19:22 Are You Blind Or Do You Have Difficulty Seeing? No Information n ot available 02/24/2024 What Is Your Level Of Caffeine Consumption? Occasional Information not available 02/24/2024 How Much Tobacco Do You Chew? None Information not available 02/24/2024 In The 14 Days Before Symptom Onset, Have You Had Close Contact With A Laboratory-confirm ed COVID-19 While That Case Was Ill? No Information n ot available 02/24/2024 In The 14 Days Before Symptom Onset, Have You Had Close Contact With A Person Who Is Under Investigation For COVID-19 While That Person Was Ill? No Information not available 02/24/2024 Have You Been To An Area Known To Be High Risk For COVID-19? No Information not available 02/24/2024 Are You Deaf Or Do You Have Serious Difficulty Hearing? No Information not available 02/24/2024 What Type Of Diet Are You Following? REGULAR Information n ot available 02/24/2024 What Is The Highest Grade Or Level Of School You Have Completed Or The Highest Degree You Have Received? [id number] Information not available 02/24/2024 Are There Any Guns Present In Your Home? No [email or web address] Information not available 04/07/2024 Do You Use Protection During Sex? No Information not available 02/24/2024 Do You Use Your Seat Belt Or Car Seat Routinely? No [email or web address] Information not available 04/07/2024 Do You Have Smoke And Carbon Monoxide Detectors In Your Home? No [email or web address] Information not available 04/07/2024 How Much Tobacco Do You Smoke? No Information not available 02/24/2024 Do You Use Sunscreen Routinely? No Information not available 02/24/2024 Have You Used IV Drugs? No Information not available 02/24/2024 Do You Have Difficulty Walking Or Climbing Stairs? No [email or web address] Information not available 05/31/2024 Sex: Unknown Functional Status Question Answer Note LastModified by Organizat ion Details LastModified Time Do you use any illicit or recreational drugs? No Information not available 02/24/2024 What is your level of alcohol consumption? None Information not available 02/24/2024 Are you able to walk independently without assistance or assistive devices? [email or web address] Information not available 02/24/2024 Are you able to care for yourself independently? Yes [email or web address] Information not available 05/31/2024 Do you have difficulty dressing, bathing, grooming, or toileting? No [email or web address] Information not available 05/31/2024 What is your exercise level? None Information not available 02/24/2024 Mental Status Question Answer Note LastModified by Organization D etails LastModified Time Do you feel stressed (tense, restless, nervous, or anxious, or unable to sleep at night)? [id number] Information not available 02/24/2024 Family History Relationship Description Onset Age of this Age Resolved Age Notes LastModified by Organization Details LastModified Time Mother Depressive disorder [email or web address] Not available 04/07 16:41:12 Mother Panic attack [email or web address] Not sanchez [email or web address] 04/07/2024 16:41:12 Maternal Aunt Depressive disorder [email or web address] Not available 04/07 16:41:12 Maternal Aunt Panic attack Not available 04/07/2024 16:41:12 Maternal Aunt Substance abuse [email or web address] Not available 04/07 16:41:12 Maternal Aunt Bipolar disorder [email or web address] Not available 04/07 16:41:12 Maternal Grandmother Depressive disorder [email or web address] Not available 04/07 16:41:12 Maternal Grandmother Bipolar disorder [email or web address] Not available 04/07 16:41:12 Brother Depressive disorder [email or web address] Not available 04/07 16:41:12 Unspecified Relation Family history unknown [email or web address] Not available 04/07 16:41:12 Medical History Condition Response Allergies (Food, seasonal, environmental ) N Other N Breast Cancer N Drug/Latex Allergies/Reactions N Blood Transfusion N Dermatologic Disorders N Lung Disease N Defects or Inherited Disease N Breast Problem N Gestational Diabetes N Hematologic disorders N Anesthesia Complications N History of STI N Deep Vein Thrombosis N Polycystic ovary syndrome N Anxiety Disorder Y Autoimmune disease N Arthritis N Infertility N Polyps N Acid Reflux (GERD) N History of abnormal pap N Cancer N Stroke N Varicosities N Neurologic/Epilepsy Y Endometriosis N High Cholesterol N Headaches Y Fibromyalgia N Kidney Disease N Heart Problems N Kidney or Bladder Problems N Thyroid Problems N GI Problems N Eating Disorder N Anemia N Art (IVF or FET) N Psychiatric Illness Y Ovarian Cancer N Diabetes N Pulmonary (TB, Asthma) N Hepatitis/Liver Disease N No Past Medical History Y Eczema N Urinary Tract Infection N Abuse/Domestic Violence N Asthma N Trauma/Violence Y Depression/ depression Y Heart Disease N Pre-Eclampsia N Hypertension N Osteoporosis N Thrombophilias N Gynecological History Statement/Question Response Date of Last Mammogram Date of LMP 06/05/2024 N On BCP's at Conception? N STIs/STDs N Was last menstrual period normal N HPV Vaccine N Duration of Flow (days) 5 Current Control Method Implant Age at First Child 18 Are cycles usually normal N Date of Last Colonoscopy Frequency of Cycle (Q days) 28 Sexually Active? Y Menses Monthly N Date of DEXA bone scan Age of first menstrual cycle 11 Date of Last Pap Smear Sexual Problems? N LMP Approximate Desired Control Method Implant N Obstetrics History GPAL:G 1 P 1 0 0 1 Type Value Full Term 1 Living 1 Total 1 Past Encounters Encounter ID Performer Location Encounter Start Date Encounter Closed Date Diagnosis/Indication Diagnosis SNOMED-CT Code Diagnosis ICD10 Code Diagnosis IMO Codes Diagnosis Note [id number] MD Kailee Vidales [address] [address] 02/24/2024 11:17:20 02/24/2024 12:51:15 Uterine size for dates discrepancy 484311320 O26.843 Z3A.31 [id number] MD Kailee Vidales [address],[place] [address] 02/24/2024 11:20:13 02/25/2024 09:09:03 Routine care 059694409 Z34.93 [id number] MD Kailee Vidales [address],[place] [address] 03/09/2024 12:06:42 03/09/2024 12:59:12 Routine care 381763619 Z34.93 [id number] MD Kailee Vidales [address],[place] [address] 03/23/2024 11:39:37 03/23/2024 12:41:14 Routine care 915492235 Z34.93 [id number] MD Kailee Vidales [address],[place] [address] 03/30/2024 15:18:43 03/30/2024 15:56:58 Uterine size for dates discrepancy 128094247 O26.843 Z3A.36 [id number] MD Kailee Vidales [address],[place] [address] 03/31/2024 13:53:25 03/31/2024 14:45:49 Routine care 152028937 Z34.93 [id number] Abeba Hansen CNM [place] [address],[place] [address] 04/07/2024 16:24:38 04/07/2024 16:53:45 Gestation period, 37 weeks 55322561 Z3A.37 continue vitamin [id number] Abeba Hansen CNM [place] [address],[place] [address] 04/14/2024 14:09:26 04/14/2024 14:35:15 Gestation period, 38 weeks 49392493 Z3A.38 continue vitamin [id number] Rafa Fields MD [place] [address],[place] [address] 04/14/2024 14:36:49 04/14/2024 15:11:02 Reduced movement 907470232 O36.8199 [id number] Abeba Hansen CNM [place] [address],[place] [address] 04/21/2024 13:44:02 04/21/2024 14:14:06 Routine care 657590341 Z34.93 [id number] Rafa Fields MD [place] [address],[place] [address] 04/28/2024 14:51:31 04/28/2024 15:43:48 Post-term 13216548 O48.0 Z3A.40 [id number] Rafa Fields MD [place] [address],[place] [address] 04/28/2024 14:52:08 04/28/2024 16:26:18 Post-term 53081959 O48.0 Z3A.40 [id number] Abeba Hansen CNM [place] [address],[place] [address] 04/28/2024 14:52:40 04/28/2024 16:55:30 Gestation period, 40 weeks 62334189 Z3A.40 continue pnv plan iol [id number] Abeba Hansen CNM [place] [address] [address] 05/31/2024 14:04:30 05/31/2024 14:40:48 care 394646899 Z39.2 Contracept ion care management 297009915 Z30.9 plan nexplanon abstain until placement [id number] Rafa Fields MD [place] [address] [address] 06/07/2024 11:26:07 06/07/2024 16:09:17 Contraception care management 653045538 Z30.9 Nexplanon inserted without complicati ons. She tolerated well. Easily palpable Implantati on of subcutaneous contraceptive 699426794 Z30.46 Health Concerns Section Related Observation LastModified by Organization Detai ls LastModified Time None Recorded Concern Status LastModified by Organization Details LastModified Time None Recorded Advance Directives Directive None Recorded Payers Insurance Date Sequence Insurance Name Policy Number Policy Siegel Covered Member ID Siegel Member ID Guarantor Name 02/24/2024 1 [facility] PRIOR TO 02/06/2021 (MEDICAID REPLACEMENT - HMO) [id number] Brit Bondsa Leady 02/24/2024 1 [facility] PRIOR TO 02/06/2021 (MEDICAID REPLACEMENT - HMO) Brit Leady [id number] Brit Leady 05/31/2024 2 [facility] FROM (O) Brit Adams [id number] Brit Leady 06/12/2024 1 [facility] ON OR AFTER 02/06/21 (MEDICAID REPLACEMENT - HMO) Brit Leady [id number] Brit Leady 05/31/2024 1 [place] [facility] OF PUBLIC AID Brit Lamas [id number] Brit Lamas Notes Date Note Type Note Provider Name and Address Organization Details Recorded Time 4 text/html Generic HPI TemplateReported by Patient Abeba Hansen CNM [address], [place], [address], [facility] 04/28/2024 16:50:10 4 text/html VisitReported by PatientHPIFor quality, patient reportsnsvd. For context, patient reportscomplications of : none,complications of labor: none, complications: none,feeding choice: bottle, andgood support from partner/family. For associated symptoms, patient reportsno abnormal bleeding,no vaginal discharge,no pelvic pain,laceration well healed,no constipation,no fecal incontinence,no dysuria,no urinary incontinence,no fever, andnormal mood. For contraception plan, patient reportscontraceptive implant.has not had intercoursebaby doing well!ROS as noted in the HPI Darya em, [facility] 05/31/2024 20:43:59 4 text/html 18-year-old female presents for Nexplanon insertion. The procedure was explained to the patient in detail. She understands the procedure. She understands the risks, benefits, and alternatives. She has completed the informed consent process and is ready to proceed. Rafa Fields MD [address], [place], [address], [facility] 06/07/2024 15:55:48 OBGyn Episode Ob Episode Information Episode Created Date Number of Fetuses Patient Bloodtype Patient rh Status Prepregnancy Weight lbs Domestic Partner Domestic Partner Phone Father Name Registered Radiologic Technologist Status 02/24/20 24 1 O Positive 163 Kennedytasergo napier [place] CLOSED Fetus Data First Name Last Name Admitted to NICU Weight (g) Sex Living Outcome Pediatric Complications Fetus ID Race Codes Race Delivery Type 3827.18 25 F true Full Term [id number] Vaginal Delivery Problems Problem Notes Problem Name Start Date End Date Resolution Snomed Code Not e Anemia 936784679 HGB 8.0 - per Dr. Fields needs IV iron. Order sent for IV iron infusions 02/28/24! Sammy Calculation Initial Sammy Date Initial Exam Date Initial Exam Provider Initial Ultrasound Date Last Menstrual Period Date Ultra Sound Weeks Gestation 04/27/2024 02/24/2024 10/04/2023 08/02/2023 10 Eighteen To Twenty Week Sammy Update Ultra Sound Date Fundal Height At Umbil Quickening Date Ultra Sound Latest Weeks Gestation Final Sammy Confirmed By Final Sammy Confirmed Date Final Sammy Date Ultra Sound Latest Days Gestation 0 [email or web address] 02/24/2024 04/27/20 24 0 Pre-josette Flowsheet Flowsheet Date 02/24/2024 Quesada Score Blood Edema Fundus Height Fundus Units Glucose Ketones Leukocytes Nitrite Labor Signs Protein Cervic Dilation Cervic Effacement Cervic Station neg none Type Weight in lbs Pre/Post Dialysis Refused Weight 167.759286767150 BP Diastolic BP Location Tested BP Systolic BP Type 75 L arm 113 sitting Fetus Heart Rate Present Fetus Movement A Yes Comments Flowsheet Date 03/09/2024 Quesada Score Blood Edema Fundus Height Fundus Units Glucose Ketones Leukocytes Nitrite Labor Signs Protein Cervic Dilation Cervic Effacement Cervic Station Type Weight in lbs Pre/Post Dialysis Refused 168.115527885116 BP Diastolic BP Location Tested BP Systolic BP Type 62 L arm 102 sitting Fetus Heart Rate Present A 132 Fetus Movement A Yes Comments No complaints, no problems, routine care Flowsheet Date 03/23/2024 Quesada Score Blood Edema Fundus Height Fundus Units Glucose Ketones Leukocytes Nitrite Labor Signs Protein Cervic Dilation Cervic Effacement Cervic Station 32 cm Type Weight in lbs Pre/Post Dialysis Refused 171.367896426318 BP Diastolic BP Location Tested BP Systolic BP Type 63 L arm 103 sitting Fetus Heart Rate Present A 145 Fetus Movement A Yes Comments no complaints, no problems, routine care, no contractions, no vaginal bleeding, no loss of fluid, no cramping. Size smaller than dates-ultrasound Flowsheet Date 03/30/2024 Quesada Score Blood Edema Fundus Height Fundus Units Glucose Ketones Leukocytes Nitrite Labor Signs Protein Cervic Dilation Cervic Effacement Cervic Station Type Weight in lbs Pre/Post Dialysis Refused BP Diastolic BP Location Tested BP Systolic BP Type Fetus Heart Rate Present Fetus Movement Comments Flowsheet Date 03/31/2024 Quesada Score Blood Edema Fundus Height Fundus Units Glucose Ketones Leukocytes Nitrite Labor Signs Protein Cervic Dilation Cervic Effacement Cervic Station 1cm 40% -3 Type Weight in lbs Pre/Post Dialysis Refused 173.569410183654 BP Diastolic BP Location Tested BP Systolic BP Type 64 L arm 104 sitting Fetus Heart Rate Present A 138 Fetus Movement A Yes Comments no complaints, no problems, routine care, no contractions, no vaginal bleeding, no loss of fluid, no cramping Flowsheet Date 04/07/2024 Quesada Score Blood Edema Fundus Height Fundus Units Glucose Ketones Leukocytes Nitrite Labor Signs Protein Cervic Dilation Cervic Effacement Cervic Station Type Weight in lbs Pre/Post Dialysis Refused 173.130902464058 BP Diastolic BP Location Tested BP Systolic BP Type 71 118 Fetus Heart Rate Present Fetus Movement A Yes Comments Patient states that is havin g nausea. precautions and education, +FM, occasional adela el f/u one week Flowsheet Date 04/14/2024 Quesada Score Blood Edema Fundus Height Fundus Units Glucose Ketones Leukocytes Nitrite Labor Signs Protein Cervic Dilation Cervic Effacement Cervic Station none 1cm 80% -2 Type Weight in lbs Pre/Post Dialysis Refused 176.896766723808 BP Diastolic BP Location Tested BP Systolic BP Type 72 117 Fetus Heart Rate Present Fetus Movement A Decreased Comments Patient states that is havin g some nausea. decreased movement. plan NST wants to labor on her own, f/u one week, education and precautions reviewed Flowsheet Date 04/14/2024 Quesada Score Blood Edema Fundus Height Fundus Units Glucose Ketones Leukocytes Nitrite Labor Signs Protein Cervic Dilation Cervic Effacement Cervic Station Type Weight in lbs Pre/Post Dialysis Refused BP Diastolic BP Location Tested BP Systolic BP Type Fetus Heart Rate Present Fetus Movement Comments Flowsheet Date 04/21/2024 Quesada Score Blood Edema Fundus Height Fundus Units Glucose Ketones Leukocytes Nitrite Labor Signs Protein Cervic Dilation Cervic Effacement Cervic Station none Type Weight in lbs Pre/Post Dialysis Refused 180.596365144154 BP Diastolic BP Location Tested BP Systolic BP Type 73 114 Fetus Heart Rate Present Fetus Movement A Yes Comments Patient states that is havin g contractions and nausea. +FM, was in ld last night, no cervical change. consider membrane sweep next week education and precautions Flowsheet Date 04/28/2024 Quesada Score Blood Edema Fundus Height Fundus Units Glucose Ketones Leukocytes Nitrite Labor Signs Protein Cervic Dilation Cervic Effacement Cervic Station Type Weight in lbs Pre/Post Dialysis Refused BP Diastolic BP Location Tested BP Systolic BP Type Fetus Heart Rate Present Fetus Movement Comments Flowsheet Date 04/28/2024 Quesada Score Blood Edema Fundus Height Fundus Units Glucose Ketones Leukocytes Nitrite Labor Signs Protein Cervic Dilation Cervic Effacement Cervic Station Type Weight in lbs Pre/Post Dialysis Refused BP Diastolic BP Location Tested BP Systolic BP Type Fetus Heart Rate Present Fetus Movement Comments Flowsheet Date 04/28/2024 Quesada Score Blood Edema Fundus Height Fundus Units Glucose Ketones Leukocytes Nitrite Labor Signs Protein Cervic Dilation Cervic Effacement Cervic Station none 1cm 80% -2 Type Weight in lbs Pre/Post Dialysis Refused 181.053255130070 BP Diastolic BP Location Tested BP Systolic BP Type 76 120 Fetus Heart Rate Present Fetus Movement A Yes Comments Patient states that is havin g contractions and nausea. pt would like iol bpp 03/16, plan for next wednesday, precautions and education +FM Menstrual History Last Menstrual Date Menses Monthly On Bcp Conception Prior Menses Frequency Hcg Plus Date Menarche Onset Age 1208/02/2023 false 12 Genetic Screening And Infection History Question Response Note Mental Retardation/Autism false Patient's Age Will Be 35 Years Or Older At Estim ated Date of Delivery false Thalassemia (Chinese, Qatari, Mediterranean, Or Background): MCV < 80 false Neural Tube Defect (Meningomyelocele, Spina Bifi da, Or Anencephaly) false Congenital Heart Defect false Down Syndrome false [place] (eg, Yazidism, [place], [place]) f alse Chey Disease false Sickle Cell Disease Or Trait () false Hemophilia Or Other Blood Disorders false Muscular Dystrophy false Cystic Fibrosis false Kristin's Chorea false Intellectual Disability/Autism false If Yes, Was Person Tested For Fragile X? false Other Inherited Genetic Or Chromosomal Disorder false Maternal Metabolic Disorder (eg, Type 1 Diabetes , PKU) false Patient Or Baby's Father Had A Child With Defects Not Listed Above false Recurrent Loss, Or A Stillbirth false Medications (including Suppl ements, Vitamins, Herbs, OTC Drugs), Illicit/Recreational Drugs, Alcohol false If Yes, Agent(s) And Strength/Dosage false Any Other Genetic History false Live With Someone With TB Or Exposed To TB false Patient Or Partner Has History Of Genital Herpes false Rash Or Viral Illness Since Last Menstrual Perio d false History Of STD, Gonorrhea, Chlamydia, HPV, Syphi lis false Other Infection History false History of HIV false History of Hepatitis false Prior GBS-infected child false Hemoglobinopathy Or Carrier false Other Structural Defect false Recent Travel History Outside of Country false Delivery Information Delivery Date Delivery Type Labor Anesthesia Weeks Gestation Incision Type Labor Labor Length Hrs Delivered By Post Complications Tubal Sterilization Discharge Date Comments [facility] idural 40.4 false Abeba Hansen CNM Anemia Discharge Information Feeding Method Contraceptive Method Maternal HG B and HCT Levels
[2025-05-22] MEDS: LACTATED RINGERS 1,000 ML 999 ML IV CONT (14:06)
[2025-05-22 14:07] VITALS: BP 101/69; PULSE 74; RESP 16; O2SAT 100
[2025-05-22 15:08] VITALS: BP 99/62; PULSE 78; RESP 14; TEMP 36.6; O2SAT 98
[2025-05-22 15:20] LABS: Magnesium 2.2 mg/dL (1.6-2.3)
== END 2025-05-22 15:13 | disposition home or self-care (01) ==
PROVIDERS: Emergency Provider Student in an Organized Health Care Education/Training Program
DX: Z48.89 Encounter for other specified surgical aftercare (principal); Z90.49 Acquired absence of other specified parts of digestive tract
CPT/HCPCS: 36415; 80053; 81001; 83605; 83690; 83735; 84702; 85025; 96360; 99283; J7120